=== PATIENT | male | born 1965 | race Caucasian/White ===

== ENCOUNTER 2017-01-22 12:19 | Inpatient (IN) | payer MEDICARE ==
[~2017-01-22] VITALS: Ht 162.6 cm; Wt 103.2 kg
[~2017-01-22 12:19] MED LIST: AMLO1CAP12 PO; AMLO5TAB4 PO; AMOX1TAB64 PO; CALC1TAB PO; CARV-39 PO; CITA40TA12 PO; CYAN100063 IM; DOXY100C2 PO; ERTA1VIA IV; ESOM40CA PO; FLUC200T PO; HYDR-3138 PO; HYDR-3240 PO; HYDR-3342 PO; MESA500C PO; OXYC1TAB8 PO; OXYC500S PO; POTA20TA14 PO; PROM12.55 PO; SERT100T PO; SULF1TAB3 PO; TEST200V21 IM; TRIA40VI IM
[2017-01-22] MEDS ORDERED: SODIUM CHLORIDE 0.9% 1,000ML IVBOLUS ONE (13:00)
[2017-01-22] MEDS ORDERED: SODIUM CHLORIDE FLUSH 10ML SYR IVF ONE (13:00)
[2017-01-22] MEDS ORDERED: ONDANSETRON 2MG/ML, 2ML IVPush ONE (13:30)
[2017-01-22] MEDS ORDERED: HYDROmorphone 1 MG/ML, 1ML ONE ×2 (13:36→15:16)
[2017-01-22] MEDS ORDERED: ONDANSETRON 2MG/ML, 2ML ONE (13:36)
[2017-01-22] MEDS: HYDROmorphone 1 MG/ML, 1ML IVPush PRN ×2 (13:44→15:22)
[2017-01-22 13:47] LABS: HEMOGLOBIN 11.8 g/dL (13.7-18.0)
[2017-01-22 13:56] LABS: ASPARTATE AMINO TRANSFERASE 17 U/L (15-37); BLOOD UREA NITROGEN 9 mg/dL (7-18)
[2017-01-22 14:21] LABS: DIFF TOTAL CELLS COUNTED 100 CELL DIFF
[2017-01-22 14:23] LABS: ANISOCYTOSIS 1+; VERIFY COUNTS? YES
[2017-01-22] MEDS ORDERED: OMNIPAQUE 350 MG/ML, 100ML BOTTLE ONE (14:27)
[2017-01-22] MEDS ORDERED: ONDANSETRON 2MG/ML, 2ML IVP PRN (16:30)
[2017-01-22] MEDS ORDERED: BISACODYL 10 MG SUPP PR PRN (16:30)
[2017-01-22] MEDS ORDERED: LABETALOL 5MG/ML, 20ML IV PRN ×2 (16:30→18:38)
[2017-01-22] MEDS ORDERED: ACETAMINOPHEN 325 MG TABLET PO PRN (16:30)
[2017-01-22] MEDS ORDERED: DOCUSATE 100 MG CAPSULE PO PRN (16:30)
[2017-01-22] MEDS ORDERED: POLYETHYLENE GLYCOL 17 GM PACKET PO PRN (16:30)
[2017-01-22] MEDS ORDERED: MORPHINE SULFATE 4 MG/ML, 1ML IVPush PRN (16:30)
[2017-01-22] MEDS: HYDROcodone/APAP 5/325 TABLET PO PRN (19:39)
[2017-01-22] MEDS: NS + 20MEQ KCL 1,000 ML IV SCH (19:54)
[2017-01-22] MEDS: ERTAPENEM 1 GM in SODIUM CHLORIDE 0.9% 50 ML IV SCH (19:54)
[2017-01-22 20:24] VITALS: BP 101/53
[2017-01-22] MEDS: CARVEDILOL 25 MG TABLET PO SCH (21:00)
[2017-01-23] MEDS: HYDROcodone/APAP 5/325 TABLET PO PRN ×6 (00:01→22:15)
[2017-01-23 02:34] VITALS: BP 101/58
[2017-01-23] MEDS: NS + 20MEQ KCL 1,000 ML IV SCH ×3 (04:02→17:15)
[2017-01-23 04:43] LABS: RAPID INFLUENZA A Negative (Negative); RAPID INFLUENZA B Negative (Negative)
[2017-01-23 05:36] LABS: HEMOGLOBIN 10.6 g/dL (13.7-18.0)
[2017-01-23 05:49] LABS: ASPARTATE AMINO TRANSFERASE 12 U/L (15-37); BLOOD UREA NITROGEN 7 mg/dL (7-18)
[2017-01-23 07:13] VITALS: BP 116/69
[2017-01-23] MEDS: CARVEDILOL 25 MG TABLET PO SCH ×2 (09:40→20:43)
[2017-01-23] MEDS: SERTRALINE 100MG TABLET PO SCH (09:40)
[2017-01-23] MEDS: AMLODIPINE 5 MG TABLET PO SCH (09:40)
[2017-01-23 13:22] VITALS: BP 111/67
[2017-01-23 19:04] VITALS: BP 111/65
[2017-01-23] MEDS ORDERED: FLUCONAZOLE 200 MG TABLET PO SCH (20:00)
[2017-01-23] MEDS: ERTAPENEM 1 GM in SODIUM CHLORIDE 0.9% 50 ML IV SCH (20:42)
[2017-01-24] MEDS: NS + 20MEQ KCL 1,000 ML IV SCH ×2 (01:49→12:32)
[2017-01-24 01:52] VITALS: BP 111/67
[2017-01-24] MEDS: HYDROcodone/APAP 5/325 TABLET PO PRN ×3 (02:41→11:11)
[2017-01-24 05:35] LABS: HEMOGLOBIN 10.3 g/dL (13.7-18.0)
[2017-01-24 05:40] LABS: BLOOD UREA NITROGEN 5 mg/dL (7-18)
[2017-01-24 07:00] VITALS: BP 108/67
[2017-01-24 09:35] VITALS: BP 107/65
[2017-01-24] MEDS: CARVEDILOL 25 MG TABLET PO SCH (09:37)
[2017-01-24] MEDS: AMLODIPINE 5 MG TABLET PO SCH (09:38)
[2017-01-24] MEDS: SERTRALINE 100MG TABLET PO SCH (09:38)
[2017-01-24] MEDS ORDERED: ERTAPENEM 1 GM in SODIUM CHLORIDE 0.9% 50 ML IV SCH (12:00)
[2017-01-24 14:16] VITALS: BP 104/61
== END 2017-01-24 14:39 | disposition home or self-care (01) | DRG 871 ==
LOC: ED 13:34 → EDIP 15:07 → 4NOR 18:15
PROVIDERS: ADMIT Hospitalist; ATTEND Hospitalist
DX: A41.9 Sepsis, unspecified organism (principal); K65.1 Peritoneal abscess; E44.0 Moderate protein-calorie malnutrition; E87.1 Hypo-osmolality and hyponatremia; K50.90 Crohn's disease, unspecified, without complications; K56.60 Unspecified intestinal obstruction; D64.9 Anemia, unspecified; D75.89 Other specified diseases of blood and blood-forming organs; R73.9 Hyperglycemia, unspecified; F32.9 Major depressive disorder, single episode, unspecified; I11.9 Hypertensive heart disease without heart failure; Z66 Do not resuscitate; Z86.14 Personal history of Methicillin resistant Staphylococcus aureus infection; Z87.891 Personal history of nicotine dependence; Z93.3 Colostomy status; Z90.49 Acquired absence of other specified parts of digestive tract; Z90.89 Acquired absence of other organs
CPT/HCPCS: 36415; 71010; 74177; 80048; 80053; 81001; 83605; 84145; 85025; 85651; 86140; 87040; 87086; 87400; 93005; 96361; 96374; 96376; J1170; J1335; J3480; Q9967; J7030

== ENCOUNTER 2017-02-03 12:46 | Inpatient (IN) | payer MEDICARE ==
[~2017-02-03] VITALS: Ht 162.6 cm; Wt 82.3 kg
[2017-02-03] MEDS ORDERED: ERTAPENEM 1 GM in SODIUM CHLORIDE 0.9% 50 ML IV ONE (15:05)
[2017-02-03] MEDS ORDERED: HYDROmorphone 1 MG/ML, 1ML ONE ×2 (15:24→16:03)
[2017-02-03] MEDS ORDERED: ONDANSETRON 2MG/ML, 2ML ONE (15:24)
[2017-02-03] MEDS ORDERED: SODIUM CHLORIDE FLUSH 10ML SYR IVF ONE (15:30)
[2017-02-03] MEDS ORDERED: ONDANSETRON 2MG/ML, 2ML IVPush ONE (15:30)
[2017-02-03] MEDS ORDERED: SODIUM CHLORIDE 0.9% 1,000ML IVBOLUS ONE (15:30)
[2017-02-03] MEDS: HYDROmorphone 1 MG/ML, 1ML IVPush PRN ×2 (15:31→16:07)
[2017-02-03 15:39] LABS: ASPARTATE AMINO TRANSFERASE 18 U/L (15-37); BLOOD UREA NITROGEN 13 mg/dL (7-18)
[2017-02-03] MEDS ORDERED: LABETALOL 5MG/ML, 20ML IVPush PRN (17:00)
[2017-02-03] MEDS ORDERED: OMNIPAQUE 350 MG/ML, 100ML BOTTLE ONE (17:20)
[2017-02-03] MEDS ORDERED: ONDANSETRON 2MG/ML, 2ML IVP PRN (17:30)
[2017-02-03 20:00] VITALS: BP 120/91
[2017-02-03 20:15] VITALS: BP 120/71
[2017-02-03] MEDS: PANTOPRAZOLE 40 MG IV IVPush SCH (21:18)
[2017-02-03] MEDS: SODIUM CHLORIDE 0.9% 1,000 ML IV SCH (21:19)
[2017-02-03] MEDS: MORPHINE SULFATE 4 MG/ML, 1ML IVPush PRN ×3 (21:19→23:26)
[2017-02-04] MEDS: MORPHINE SULFATE 4 MG/ML, 1ML IVPush PRN ×7 (02:59→23:17)
[2017-02-04 03:04] VITALS: BP 127/71
[2017-02-04] MEDS: SODIUM CHLORIDE 0.9% 1,000 ML IV SCH ×2 (05:08→17:22)
[2017-02-04 06:19] LABS: ASPARTATE AMINO TRANSFERASE 18 U/L (15-37); BLOOD UREA NITROGEN 10 mg/dL (7-18)
[2017-02-04 08:02] VITALS: BP 123/66
[2017-02-04] MEDS: PANTOPRAZOLE 40 MG IV IVPush SCH ×2 (08:53→22:04)
[2017-02-04] MEDS ORDERED: MAGNESIUM SULFATE PMX 2GM/50ML 50 ML IV ONE (09:00)
[2017-02-04] MEDS ORDERED: ERTAPENEM 1 GM IV SCH (09:00)
[2017-02-04] MEDS: ERTAPENEM 1 GM in SODIUM CHLORIDE 0.9% 50 ML IV SCH (09:05)
[2017-02-04] MEDS: AMLODIPINE 5 MG TABLET PO SCH (10:12)
[2017-02-04] MEDS: SERTRALINE 100MG TABLET PO SCH (10:13)
[2017-02-04 13:59] VITALS: BP 118/61
[2017-02-04 20:09] VITALS: BP 120/72
[2017-02-04] MEDS: CARVEDILOL 25 MG TABLET PO SCH (22:04)
[2017-02-05 01:43] VITALS: BP 99/57
[2017-02-05] MEDS: MORPHINE SULFATE 4 MG/ML, 1ML IVPush PRN ×4 (02:38→12:55)
[2017-02-05 05:50] LABS: BLOOD UREA NITROGEN 7 mg/dL (7-18)
[2017-02-05 08:09] VITALS: BP 105/62
[2017-02-05] MEDS: CARVEDILOL 25 MG TABLET PO SCH (09:02)
[2017-02-05] MEDS: AMLODIPINE 5 MG TABLET PO SCH (09:03)
[2017-02-05] MEDS: PANTOPRAZOLE 40 MG IV IVPush SCH (09:10)
[2017-02-05] MEDS: ERTAPENEM 1 GM in SODIUM CHLORIDE 0.9% 50 ML IV SCH (09:10)
[2017-02-05] MEDS: SERTRALINE 100MG TABLET PO SCH (09:11)
[2017-02-05 13:51] VITALS: BP 106/62
[2017-02-05 17:08] VITALS: BP 122/71
== END 2017-02-05 18:35 | disposition home or self-care (01) | DRG 389 ==
LOC: ED 13:39 → EDIP 17:04 → 4NOR 20:35
PROVIDERS: ADMIT Family Medicine; ATTEND Family Medicine
DX: K56.5 Intestinal adhesions [bands] with obstruction (postinfection) (principal); E44.0 Moderate protein-calorie malnutrition; K50.90 Crohn's disease, unspecified, without complications; L02.211 Cutaneous abscess of abdominal wall; D75.89 Other specified diseases of blood and blood-forming organs; E83.42 Hypomagnesemia; I11.9 Hypertensive heart disease without heart failure; F32.9 Major depressive disorder, single episode, unspecified; S31.109A Unspecified open wound of abdominal wall, unspecified quadrant without penetration into peritoneal cavity, initial encounter; X58.XXXA Exposure to other specified factors, initial encounter; D64.9 Anemia, unspecified; Z66 Do not resuscitate; Z86.14 Personal history of Methicillin resistant Staphylococcus aureus infection; Z87.891 Personal history of nicotine dependence; Z93.3 Colostomy status; Z90.49 Acquired absence of other specified parts of digestive tract; Z90.89 Acquired absence of other organs; Z88.8 Allergy status to other drugs, medicaments and biological substances; Y93.89 Activity, other specified; Y92.89 Other specified places as the place of occurrence of the external cause; Y99.8 Other external cause status; Z68.31 Body mass index [BMI] 31.0-31.9, adult
CPT/HCPCS: 36415; 74020; 74177; 80048; 80053; 83605; 83690; 83735; 84100; 85025; 87040; 96361; 96365; 96366; 96375; 96376; J1170; J1335; J2405; Q9967; C9113; J3475; J7030

== ENCOUNTER 2017-02-24 15:19 | Inpatient (IN) | payer MEDICARE ==
[~2017-02-24] VITALS: Ht 162.6 cm; Wt 69.8 kg
[2017-02-24] MEDS ORDERED: SODIUM CHLORIDE 0.9% 1,000 ML IV ONE (15:29)
[2017-02-24] MEDS ORDERED: ACETAMINOPHEN 325 MG TABLET PO ONE (15:30)
[2017-02-24] MEDS ORDERED: SODIUM CHLORIDE FLUSH 10ML SYR IVF ONE (15:30)
[2017-02-24] MEDS ORDERED: ONDANSETRON 2MG/ML, 2ML IVPush ONE (15:30)
[2017-02-24 16:03] LABS: BLOOD UREA NITROGEN 14 mg/dL (7-18)
[2017-02-24 16:06] LABS: ASPARTATE AMINO TRANSFERASE 27 U/L (15-37)
[2017-02-24 16:18] LABS: DIFF TOTAL CELLS COUNTED 100 CELL DIFF
[2017-02-24 16:19] LABS: ANISOCYTOSIS 1+; VERIFY COUNTS? YES
[2017-02-24 16:20] LABS: POLYCHROMASIA 1+
[2017-02-24] MEDS ORDERED: HYDROmorphone 1 MG/ML, 1ML ONE ×4 (16:24→18:53)
[2017-02-24] MEDS ORDERED: ONDANSETRON 2MG/ML, 2ML ONE (16:24)
[2017-02-24] MEDS ORDERED: ACETAMINOPHEN 325 MG TABLET ONE ×2 (16:25→18:53)
[2017-02-24] MEDS: HYDROmorphone 1 MG/ML, 1ML IVPush PRN ×4 (16:28→18:56)
[2017-02-24] MEDS ORDERED: FLUC200T4 PO (16:43)
[2017-02-24] MEDS ORDERED: TESTERONE (16:44)
[2017-02-24] MEDS ORDERED: OMNIPAQUE 350 MG/ML, 100ML BOTTLE ONE (17:20)
[2017-02-24] MEDS ORDERED: SODIUM CHLORIDE 0.9% 1,000ML IVBOLUS ONE (18:00)
[2017-02-24] MEDS ORDERED: ACETAMINOPHEN 500 MG TABLET PO ONE (18:30)
[2017-02-24] MEDS ORDERED: POLYETHYLENE GLYCOL 17 GM PACKET PO PRN (19:30)
[2017-02-24] MEDS ORDERED: DOCUSATE 100 MG CAPSULE PO PRN (19:30)
[2017-02-24] MEDS ORDERED: VANCOMYCIN PER PHARMACY MC PRN (19:30)
[2017-02-24] MEDS ORDERED: CIPROFLOXACIN/PMX 400MG/200ML 200 ML IV SCH (19:30)
[2017-02-24] MEDS ORDERED: ACETAMINOPHEN 325 MG TABLET PO PRN (19:30)
[2017-02-24] MEDS ORDERED: morphine SULFATE 10 MG/ML, 1ML IVPush PRN (19:30)
[2017-02-24 20:18] VITALS: BP 102/54
[2017-02-24] MEDS: CARVEDILOL 25 MG TABLET PO SCH (20:43)
[2017-02-24] MEDS ORDERED: PHARMACOKINETIC MONITORING MC PRN (21:00)
[2017-02-24] MEDS ORDERED: PHARMACOKINETIC CONSULTATION MC ONE (21:00)
[2017-02-24] MEDS: MORPHINE SULFATE 4 MG/ML, 1ML IVPush PRN (21:01)
[2017-02-24] MEDS: NS + 20MEQ KCL 1,000 ML IV SCH (21:02)
[2017-02-24] MEDS: ERTAPENEM 1 GM in SODIUM CHLORIDE 0.9% 50 ML IV SCH (21:02)
[2017-02-24] MEDS ORDERED: VANCOMYCIN 1,500 MG in SODIUM CHLORIDE 0.9% 250 ML IV SCH (21:30)
[2017-02-24] MEDS: OXYcodone IR 5MG TABLET PO PRN (22:24)
[2017-02-25 00:52] VITALS: BP 97/54
[2017-02-25] MEDS: MORPHINE SULFATE 4 MG/ML, 1ML IVPush PRN ×7 (00:54→21:30)
[2017-02-25 01:31] VITALS: BP 106/54
[2017-02-25 05:29] LABS: BLOOD UREA NITROGEN 10 mg/dL (7-18)
[2017-02-25] MEDS: OXYcodone IR 5MG TABLET PO PRN ×4 (06:33→20:33)
[2017-02-25] MEDS: NS + 20MEQ KCL 1,000 ML IV SCH (06:33)
[2017-02-25 07:38] VITALS: BP 105/59
[2017-02-25] MEDS: CARVEDILOL 25 MG TABLET PO SCH ×2 (09:44→20:34)
[2017-02-25] MEDS: VANCOMYCIN 1,500 MG in SODIUM CHLORIDE 0.9% 250 ML IV SCH ×2 (09:45→21:30)
[2017-02-25] MEDS: FLUCONAZOLE 200 MG TABLET PO SCH (09:45)
[2017-02-25] MEDS: SERTRALINE 100MG TABLET PO SCH (09:47)
[2017-02-25] MEDS: ENOXAPARIN 40 MG/0.4 ML SQ SCH (10:00)
[2017-02-25] MEDS: SODIUM CHLORIDE 0.9% IV SCH ×2 (10:50→20:34)
[2017-02-25] MEDS: MAGNESIUM SULFATE IV SCH ×2 (10:50→20:34)
[2017-02-25] MEDS: POTASSIUM CHLORIDE IV SCH ×2 (10:50→20:34)
[2017-02-25 14:44] VITALS: BP 91/50
[2017-02-25 20:25] VITALS: BP 102/62
[2017-02-25] MEDS: ERTAPENEM 1 GM in SODIUM CHLORIDE 0.9% 50 ML IV SCH (20:34)
[2017-02-26 02:51] VITALS: BP 96/55
[2017-02-26] MEDS: MORPHINE SULFATE 4 MG/ML, 1ML IVPush PRN ×4 (02:57→21:26)
[2017-02-26] MEDS: OXYcodone IR 5MG TABLET PO PRN ×3 (04:26→20:17)
[2017-02-26 04:48] LABS: BLOOD UREA NITROGEN 6 mg/dL (7-18)
[2017-02-26 08:25] VITALS: BP 108/59
[2017-02-26] MEDS: SERTRALINE 100MG TABLET PO SCH (08:27)
[2017-02-26] MEDS: FLUCONAZOLE 200 MG TABLET PO SCH (08:27)
[2017-02-26] MEDS: CARVEDILOL 25 MG TABLET PO SCH ×2 (08:27→20:16)
[2017-02-26] MEDS: SODIUM CHLORIDE 0.9% IV SCH (08:28)
[2017-02-26] MEDS: POTASSIUM CHLORIDE IV SCH (08:28)
[2017-02-26] MEDS: MAGNESIUM SULFATE IV SCH (08:28)
[2017-02-26] MEDS: ENOXAPARIN 40 MG/0.4 ML SQ SCH (10:00)
[2017-02-26] MEDS: VANCOMYCIN 1,500 MG in SODIUM CHLORIDE 0.9% 250 ML IV SCH ×2 (11:56→21:18)
[2017-02-26 13:56] VITALS: BP 105/62
[2017-02-26 19:30] VITALS: BP 105/63
[2017-02-26] MEDS: ERTAPENEM 1 GM in SODIUM CHLORIDE 0.9% 50 ML IV SCH (20:16)
[2017-02-26 21:21] VITALS: BP 117/65
[2017-02-27 01:59] VITALS: BP 109/62
[2017-02-27] MEDS: OXYcodone IR 5MG TABLET PO PRN ×4 (02:19→22:03)
[2017-02-27 02:32] LABS: BLOOD UREA NITROGEN 5 mg/dL (7-18)
[2017-02-27] MEDS: FLUCONAZOLE 200 MG TABLET PO SCH (09:20)
[2017-02-27] MEDS: CARVEDILOL 25 MG TABLET PO SCH ×2 (09:20→20:38)
[2017-02-27] MEDS: SERTRALINE 100MG TABLET PO SCH (09:20)
[2017-02-27 09:34] VITALS: BP 119/67
[2017-02-27] MEDS: VANCOMYCIN 1,500 MG in SODIUM CHLORIDE 0.9% 250 ML IV SCH ×2 (10:56→22:03)
[2017-02-27] MEDS: MORPHINE SULFATE 4 MG/ML, 1ML IVPush PRN ×2 (10:56→20:30)
[2017-02-27] MEDS: ENOXAPARIN 40 MG/0.4 ML SQ SCH (10:57)
[2017-02-27 14:06] VITALS: BP 116/64
[2017-02-27 19:23] VITALS: BP 120/74
[2017-02-27] MEDS: ERTAPENEM 1 GM in SODIUM CHLORIDE 0.9% 50 ML IV SCH (20:38)
[2017-02-28 03:13] VITALS: BP 112/71
[2017-02-28] MEDS: MORPHINE SULFATE 4 MG/ML, 1ML IVPush PRN ×4 (03:19→22:48)
[2017-02-28 03:36] LABS: BLOOD UREA NITROGEN 5 mg/dL (7-18)
[2017-02-28 08:32] VITALS: BP 114/72
[2017-02-28] MEDS: CARVEDILOL 25 MG TABLET PO SCH ×2 (08:55→21:12)
[2017-02-28] MEDS: OXYcodone IR 5MG TABLET PO PRN ×3 (08:56→21:12)
[2017-02-28] MEDS: FLUCONAZOLE 200 MG TABLET PO SCH (08:56)
[2017-02-28] MEDS: SERTRALINE 100MG TABLET PO SCH (08:56)
[2017-02-28] MEDS: ENOXAPARIN 40 MG/0.4 ML SQ SCH (10:00)
[2017-02-28] MEDS: VANCOMYCIN 1,500 MG in SODIUM CHLORIDE 0.9% 250 ML IV SCH ×2 (12:00→22:47)
[2017-02-28 14:59] VITALS: BP 107/69
[2017-02-28 20:43] VITALS: BP 124/75
[2017-02-28] MEDS: ERTAPENEM 1 GM in SODIUM CHLORIDE 0.9% 50 ML IV SCH (21:12)
[2017-03-01] MEDS: OXYcodone IR 5MG TABLET PO PRN ×4 (01:11→20:26)
[2017-03-01 02:00] VITALS: BP 112/62
[2017-03-01] MEDS: MORPHINE SULFATE 4 MG/ML, 1ML IVPush PRN ×6 (02:23→21:46)
[2017-03-01 07:13] VITALS: BP 103/63
[2017-03-01 09:08] VITALS: BP 124/69
[2017-03-01] MEDS: SERTRALINE 100MG TABLET PO SCH (09:09)
[2017-03-01] MEDS: FLUCONAZOLE 200 MG TABLET PO SCH (09:09)
[2017-03-01] MEDS: CARVEDILOL 25 MG TABLET PO SCH ×2 (09:10→20:26)
[2017-03-01] MEDS: ENOXAPARIN 40 MG/0.4 ML SQ SCH (12:03)
[2017-03-01] MEDS: VANCOMYCIN 1,500 MG in SODIUM CHLORIDE 0.9% 250 ML IV SCH (12:03)
[2017-03-01 12:35] VITALS: BP 105/66
[2017-03-01 19:18] VITALS: BP 115/65
[2017-03-01] MEDS: ERTAPENEM 1 GM in SODIUM CHLORIDE 0.9% 50 ML IV SCH (20:25)
[2017-03-02] MEDS: MORPHINE SULFATE 4 MG/ML, 1ML IVPush PRN ×4 (00:31→22:41)
[2017-03-02] MEDS: OXYcodone IR 5MG TABLET PO PRN ×3 (00:31→09:26)
[2017-03-02] MEDS: VANCOMYCIN 1,500 MG in SODIUM CHLORIDE 0.9% 250 ML IV SCH (00:31)
[2017-03-02 03:40] VITALS: BP 108/66
[2017-03-02 07:05] VITALS: BP 104/63
[2017-03-02] MEDS: SERTRALINE 100MG TABLET PO SCH (09:23)
[2017-03-02] MEDS: FLUCONAZOLE 200 MG TABLET PO SCH (09:23)
[2017-03-02] MEDS: CARVEDILOL 25 MG TABLET PO SCH ×2 (09:24→21:00)
[2017-03-02] MEDS: ENOXAPARIN 40 MG/0.4 ML SQ SCH (12:00)
[2017-03-02 12:55] VITALS: BP 103/64
[2017-03-02] MEDS ORDERED: MEPERIDINE/PF 25MG/0.5ML IVPush PRN (15:30)
[2017-03-02] MEDS ORDERED: ONDANSETRON 2MG/ML, 2ML IVPush PRN (15:30)
[2017-03-02] MEDS ORDERED: hydrALAzine 20 MG/ML, 1ML IV PRN (15:30)
[2017-03-02] MEDS ORDERED: OXYcodone 5 MG/5 ML ORAL.SOL UDC PO PRN (15:30)
[2017-03-02] MEDS ORDERED: PROMETHAZINE 25 MG/ML, 1ML IV PRN (15:30)
[2017-03-02] MEDS ORDERED: LABETALOL 5MG/ML, 20ML IV PRN (15:30)
[2017-03-02] MEDS ORDERED: METOCLOPRAMIDE 5 MG/ML, 2ML IV PRN (15:30)
[2017-03-02] MEDS ORDERED: ROCURONIUM 10 MG/ML ONE (15:40)
[2017-03-02] MEDS ORDERED: PHENYLEPHRINE 10 MG/ML ONE (15:40)
[2017-03-02] MEDS ORDERED: NEOSTIGMINE 1 MG/ML, 10ML ONE (15:40)
[2017-03-02] MEDS ORDERED: PROPOFOL 10 MG/ML, 20ML ONE (15:40)
[2017-03-02] MEDS ORDERED: GLYCOPYRROLATE 0.2MG/1ML ONE (15:40)
[2017-03-02] MEDS ORDERED: VANCOMYCIN 1,500 MG in SODIUM CHLORIDE 0.9% 250 ML IV SCH (18:00)
[2017-03-02] MEDS ORDERED: VASOPRESSIN 20 UNIT/ML, 1ML ONE (18:33)
[2017-03-02] MEDS ORDERED: ALBUMIN HUMAN 5% 500 ML ONE (18:34)
[2017-03-02] MEDS: FENTANYL PF 100 MCG/2ML IV PRN ×4 (18:45→19:40)
[2017-03-02] MEDS ORDERED: HYDROmorphone 2 MG/ML, 1ML ONE (20:02)
[2017-03-02] MEDS: HYDROmorphone 1 MG/ML, 1ML IV PRN ×3 (20:04→20:19)
[2017-03-02] MEDS: ERTAPENEM 1 GM in SODIUM CHLORIDE 0.9% 50 ML IV SCH (21:48)
[2017-03-02 22:26] LABS: BLOOD UREA NITROGEN 13 mg/dL (7-18)
[2017-03-03] MEDS: MORPHINE SULFATE 4 MG/ML, 1ML IVPush PRN ×3 (01:44→08:07)
[2017-03-03 04:00] VITALS: BP 114/48
[2017-03-03] MEDS: ONDANSETRON 2MG/ML, 2ML IVPush PRN ×2 (05:04→09:03)
[2017-03-03 05:20] LABS: BLOOD UREA NITROGEN 14 mg/dL (7-18)
[2017-03-03 05:23] LABS: ASPARTATE AMINO TRANSFERASE 18 U/L (15-37)
[2017-03-03] MEDS ORDERED: MAGNESIUM SULFATE PMX 4GM/100M 100 ML IV ONE (08:00)
[2017-03-03] MEDS: FLUCONAZOLE 200 MG TABLET PO SCH (09:03)
[2017-03-03] MEDS: SERTRALINE 100MG TABLET PO SCH (09:03)
[2017-03-03] MEDS: HYDROmorphone 2 MG/ML, 1ML IVPush PRN ×7 (10:14→23:18)
[2017-03-03] MEDS: ENOXAPARIN 40 MG/0.4 ML SQ SCH (12:24)
[2017-03-03] MEDS ORDERED: SODIUM CHLORIDE 0.9%, 500ML IVBOLUS ONE (14:00)
[2017-03-03] MEDS: SODIUM CHLORIDE 0.9% 1,000 ML IV SCH ×3 (14:06→23:19)
[2017-03-03] MEDS: ERTAPENEM 1 GM in SODIUM CHLORIDE 0.9% 50 ML IV SCH (20:44)
[2017-03-04] VITALS (7 sets, daily range): BP systolic 100–115; BP diastolic 47–62
[2017-03-04] MEDS: HYDROmorphone 2 MG/ML, 1ML IVPush PRN ×5 (02:16→22:46)
[2017-03-04 05:57] LABS: BLOOD UREA NITROGEN 20 mg/dL (7-18)
[2017-03-04] MEDS: OXYcodone IR 5MG TABLET PO PRN (07:43)
[2017-03-04] MEDS: SODIUM CHLORIDE 0.9% 1,000 ML IV SCH ×3 (08:30→20:43)
[2017-03-04] MEDS: FLUCONAZOLE 200 MG TABLET PO SCH (08:31)
[2017-03-04] MEDS: SERTRALINE 100MG TABLET PO SCH (08:31)
[2017-03-04] MEDS: OXYcodone/APAP 7.5/325MG TABLET PO PRN ×3 (12:02→20:42)
[2017-03-04] MEDS: ENOXAPARIN 30 MG/0.3 ML SQ SCH (12:04)
[2017-03-04] MEDS ORDERED: FAMOTIDINE 20 MG/2 ML IVPush SCH (14:30)
[2017-03-04] MEDS: FAMOTIDINE 20 MG/2 ML IVPush SCH (15:07)
[2017-03-04] MEDS: ERTAPENEM 1 GM in SODIUM CHLORIDE 0.9% 50 ML IV SCH (20:42)
[2017-03-05] VITALS (9 sets, daily range): BP systolic 95–112; BP diastolic 57–70
[2017-03-05] MEDS: OXYcodone/APAP 7.5/325MG TABLET PO PRN ×5 (01:22→23:39)
[2017-03-05] MEDS: HYDROmorphone 2 MG/ML, 1ML IVPush PRN ×5 (03:30→21:37)
[2017-03-05 05:32] LABS: BLOOD UREA NITROGEN 20 mg/dL (7-18)
[2017-03-05 05:36] LABS: ASPARTATE AMINO TRANSFERASE 13 U/L (15-37)
[2017-03-05] MEDS: FLUCONAZOLE 200 MG TABLET PO SCH (07:09)
[2017-03-05] MEDS: FAMOTIDINE 20 MG/2 ML IVPush SCH (07:09)
[2017-03-05] MEDS: SODIUM CHLORIDE 0.9% 1,000 ML IV SCH ×2 (07:10→17:41)
[2017-03-05] MEDS: SERTRALINE 100MG TABLET PO SCH (07:10)
[2017-03-05] MEDS: ENOXAPARIN 30 MG/0.3 ML SQ SCH (13:02)
[2017-03-05] MEDS ORDERED: CATHFLO-ALTEPLASE 2 MG/2 ML CATHFLUSH ONE ×2 (15:30→18:00)
[2017-03-05] MEDS: ERTAPENEM 1 GM in SODIUM CHLORIDE 0.9% 50 ML IV SCH (21:37)
[2017-03-06 02:05] VITALS: BP 111/64
[2017-03-06] MEDS: HYDROmorphone 2 MG/ML, 1ML IVPush PRN ×5 (02:22→23:57)
[2017-03-06] MEDS: OXYcodone/APAP 7.5/325MG TABLET PO PRN ×5 (03:24→23:15)
[2017-03-06] MEDS: SODIUM CHLORIDE 0.9% 1,000 ML IV SCH ×2 (03:24→15:23)
[2017-03-06 06:02] LABS: ASPARTATE AMINO TRANSFERASE 13 U/L (15-37); BLOOD UREA NITROGEN 16 mg/dL (7-18)
[2017-03-06 07:50] VITALS: BP 113/67
[2017-03-06] MEDS: FLUCONAZOLE 200 MG TABLET PO SCH (08:45)
[2017-03-06] MEDS: SERTRALINE 100MG TABLET PO SCH (08:46)
[2017-03-06] MEDS: FAMOTIDINE 20 MG/2 ML IVPush SCH (11:00)
[2017-03-06] MEDS: ENOXAPARIN 40 MG/0.4 ML SQ SCH (12:58)
[2017-03-06 15:35] VITALS: BP 104/64
[2017-03-06 18:44] LABS: BLOOD UREA NITROGEN 14 mg/dL (7-18)
[2017-03-06 19:42] VITALS: BP 118/70
[2017-03-06] MEDS: ERTAPENEM 1 GM in SODIUM CHLORIDE 0.9% 50 ML IV SCH (21:09)
[2017-03-07 01:38] VITALS: BP 115/50
[2017-03-07] MEDS: SODIUM CHLORIDE 0.9% 1,000 ML IV SCH ×3 (02:07→20:38)
[2017-03-07] MEDS: HYDROmorphone 2 MG/ML, 1ML IVPush PRN ×4 (04:17→20:29)
[2017-03-07] MEDS: OXYcodone/APAP 7.5/325MG TABLET PO PRN ×5 (05:08→23:13)
[2017-03-07 07:07] VITALS: BP 116/70
[2017-03-07] MEDS: FLUCONAZOLE 200 MG TABLET PO SCH (08:35)
[2017-03-07] MEDS: FAMOTIDINE 20 MG/2 ML IVPush SCH (08:35)
[2017-03-07] MEDS: SERTRALINE 100MG TABLET PO SCH (08:35)
[2017-03-07] MEDS: ENOXAPARIN 40 MG/0.4 ML SQ SCH (12:13)
[2017-03-07 15:22] VITALS: BP 133/73
[2017-03-07 19:28] VITALS: BP 146/81
[2017-03-07] MEDS: ERTAPENEM 1 GM in SODIUM CHLORIDE 0.9% 50 ML IV SCH (20:29)
[2017-03-07] MEDS: ONDANSETRON 2MG/ML, 2ML IVPush PRN (20:38)
[2017-03-08] VITALS (7 sets, daily range): BP systolic 122–138; BP diastolic 70–77
[2017-03-08] MEDS: OXYcodone/APAP 7.5/325MG TABLET PO PRN ×5 (03:39→23:44)
[2017-03-08 05:05] LABS: BLOOD UREA NITROGEN 11 mg/dL (7-18)
[2017-03-08] MEDS: SODIUM CHLORIDE 0.9% 1,000 ML IV SCH ×2 (08:09→17:09)
[2017-03-08] MEDS: ONDANSETRON 2MG/ML, 2ML IVPush PRN (08:09)
[2017-03-08] MEDS: SERTRALINE 100MG TABLET PO SCH (09:39)
[2017-03-08] MEDS: FLUCONAZOLE 200 MG TABLET PO SCH (09:39)
[2017-03-08] MEDS: FAMOTIDINE 20 MG/2 ML IVPush SCH (09:40)
[2017-03-08] MEDS: HYDROmorphone 2 MG/ML, 1ML IVPush PRN ×3 (09:55→21:12)
[2017-03-08] MEDS: ENOXAPARIN 40 MG/0.4 ML SQ SCH (12:00)
[2017-03-08] MEDS: LACTOBACILLUS 1GM/ PACKET PO SCH ×3 (12:18→21:12)
[2017-03-08] MEDS ORDERED: ONDANSETRON ODT 4 MG ONE (14:53)
[2017-03-08] MEDS ORDERED: ONDANSETRON ODT 4 MG PO PRN (15:00)
[2017-03-08] MEDS: ERTAPENEM 1 GM in SODIUM CHLORIDE 0.9% 50 ML IV SCH (21:12)
[2017-03-09 02:25] VITALS: BP 131/72
[2017-03-09] MEDS: HYDROmorphone 2 MG/ML, 1ML IVPush PRN ×5 (02:31→21:48)
[2017-03-09] MEDS: SODIUM CHLORIDE 0.9% 1,000 ML IV SCH ×3 (02:33→21:48)
[2017-03-09] MEDS: OXYcodone/APAP 7.5/325MG TABLET PO PRN ×5 (06:04→23:05)
[2017-03-09 06:41] LABS: BLOOD UREA NITROGEN 10 mg/dL (7-18)
[2017-03-09] MEDS: FLUCONAZOLE 200 MG TABLET PO SCH (07:48)
[2017-03-09] MEDS: SERTRALINE 100MG TABLET PO SCH (07:48)
[2017-03-09] MEDS: LACTOBACILLUS 1GM/ PACKET PO SCH ×3 (07:48→21:41)
[2017-03-09] MEDS: FAMOTIDINE 20 MG/2 ML IVPush SCH (07:49)
[2017-03-09 08:59] VITALS: BP 129/77
[2017-03-09] MEDS: ONDANSETRON 2MG/ML, 2ML IVPush PRN (09:47)
[2017-03-09] MEDS: ENOXAPARIN 40 MG/0.4 ML SQ SCH (12:00)
[2017-03-09 15:20] VITALS: BP 136/78
[2017-03-09 20:00] VITALS: BP 120/74
[2017-03-09] MEDS: ERTAPENEM 1 GM in SODIUM CHLORIDE 0.9% 50 ML IV SCH (21:41)
[2017-03-09] MEDS ORDERED: OMNIPAQUE 350 MG/ML, 50 ML BOTTLE ONE (21:44)
[2017-03-10 02:00] VITALS: BP 119/66
[2017-03-10] MEDS: OXYcodone/APAP 7.5/325MG TABLET PO PRN ×5 (02:57→20:42)
[2017-03-10] MEDS: LACTOBACILLUS 1GM/ PACKET PO SCH ×3 (09:00→20:27)
[2017-03-10] MEDS: FLUCONAZOLE 200 MG TABLET PO SCH (09:12)
[2017-03-10] MEDS: SERTRALINE 100MG TABLET PO SCH (09:12)
[2017-03-10] MEDS: FAMOTIDINE 20 MG/2 ML IVPush SCH (09:12)
[2017-03-10 09:15] VITALS: BP 154/82
[2017-03-10] MEDS: SODIUM CHLORIDE 0.9% 1,000 ML IV SCH ×2 (09:18→20:45)
[2017-03-10] MEDS: HYDROmorphone 2 MG/ML, 1ML IVPush PRN ×3 (09:37→18:21)
[2017-03-10] MEDS: ENOXAPARIN 40 MG/0.4 ML SQ SCH (12:04)
[2017-03-10 12:59] LABS: BLOOD UREA NITROGEN 8 mg/dL (7-18)
[2017-03-10 14:00] VITALS: BP 149/79
[2017-03-10] MEDS: FLUCONAZOLE 400 MG/200 ML 200 ML IV SCH (14:25)
[2017-03-10] MEDS ORDERED: FILTER, DISP 1.2 MICRON FOR TPN/PVN IV PRN (15:00)
[2017-03-10] MEDS ORDERED: DEXTROSE 10% 500 ML IV PRN (17:00)
[2017-03-10] MEDS ORDERED: AMINO ACID 10% IV SCH (17:00)
[2017-03-10] MEDS ORDERED: DEXTROSE 70% IV SCH (17:00)
[2017-03-10] MEDS ORDERED: FAT EMULSIONS IV SCH (17:00)
[2017-03-10] MEDS ORDERED: [UNRECOGNIZED DRUG - OTHER] IV SCH (17:00)
[2017-03-10] MEDS ORDERED: DEXTROSE 50%, 50ML SYRINGE IVPush PRN (17:00)
[2017-03-10] MEDS ORDERED: TPN PER PHARMACY MC PRN (17:00)
[2017-03-10] MEDS: ERTAPENEM 1 GM in SODIUM CHLORIDE 0.9% 50 ML IV SCH (20:26)
[2017-03-10] MEDS: INSULIN REGULAR MEDIUM DOSE Q6H X 48HRS SQ-INSULIN SCH (20:31)
[2017-03-10 21:35] VITALS: BP 150/76
[2017-03-11 02:11] VITALS: BP 136/73
[2017-03-11] MEDS: OXYcodone/APAP 7.5/325MG TABLET PO PRN ×5 (02:24→22:21)
[2017-03-11] MEDS: INSULIN REGULAR MEDIUM DOSE Q6H X 48HRS SQ-INSULIN SCH ×4 (02:28→21:00)
[2017-03-11] MEDS: HYDROmorphone 2 MG/ML, 1ML IVPush PRN ×4 (05:06→20:57)
[2017-03-11 05:49] LABS: BLOOD UREA NITROGEN 9 mg/dL (7-18)
[2017-03-11 05:53] LABS: ASPARTATE AMINO TRANSFERASE 18 U/L (15-37)
[2017-03-11 07:15] VITALS: BP 137/80
[2017-03-11] MEDS: SERTRALINE 100MG TABLET PO SCH (09:16)
[2017-03-11] MEDS: LACTOBACILLUS 1GM/ PACKET PO SCH ×3 (09:16→20:57)
[2017-03-11 12:17] VITALS: BP 137/83
[2017-03-11] MEDS: FLUCONAZOLE 400 MG/200 ML 200 ML IV SCH (13:07)
[2017-03-11] MEDS: ENOXAPARIN 40 MG/0.4 ML SQ SCH ×2 (13:07→13:09)
[2017-03-11] MEDS ORDERED: [UNRECOGNIZED DRUG - OTHER] IV SCH (17:00)
[2017-03-11] MEDS ORDERED: FILTER, DISP 1.2 MICRON FOR TPN/PVN IV PRN (17:00)
[2017-03-11] MEDS ORDERED: AMINO ACID 10% IV SCH (17:00)
[2017-03-11] MEDS ORDERED: FAT EMULSIONS IV SCH (17:00)
[2017-03-11] MEDS ORDERED: DEXTROSE 70% IV SCH (17:00)
[2017-03-11] MEDS: SODIUM CHLORIDE 0.9% 1,000 ML IV SCH (17:27)
[2017-03-11 20:51] VITALS: BP 145/81
[2017-03-11] MEDS: ERTAPENEM 1 GM in SODIUM CHLORIDE 0.9% 50 ML IV SCH (20:57)
[2017-03-12] MEDS: OXYcodone/APAP 7.5/325MG TABLET PO PRN ×5 (01:56→21:26)
[2017-03-12] MEDS: INSULIN REGULAR MEDIUM DOSE Q6H X 48HRS SQ-INSULIN SCH (03:00)
[2017-03-12 03:30] VITALS: BP 144/89
[2017-03-12] MEDS: HYDROmorphone 2 MG/ML, 1ML IVPush PRN ×4 (05:43→19:47)
[2017-03-12 06:11] LABS: BLOOD UREA NITROGEN 11 mg/dL (7-18)
[2017-03-12 07:47] VITALS: BP 155/84
[2017-03-12] MEDS: SERTRALINE 100MG TABLET PO SCH (08:59)
[2017-03-12] MEDS: LACTOBACILLUS 1GM/ PACKET PO SCH ×3 (09:01→21:00)
[2017-03-12] MEDS: FLUCONAZOLE 400 MG/200 ML 200 ML IV SCH (13:01)
[2017-03-12] MEDS: ENOXAPARIN 40 MG/0.4 ML SQ SCH (13:02)
[2017-03-12 13:41] VITALS: BP 132/82
[2017-03-12] MEDS ORDERED: FAT EMULSIONS IV SCH (17:00)
[2017-03-12] MEDS ORDERED: AMINO ACID 10% IV SCH (17:00)
[2017-03-12] MEDS ORDERED: [UNRECOGNIZED DRUG - OTHER] IV SCH (17:00)
[2017-03-12] MEDS ORDERED: DEXTROSE 70% IV SCH (17:00)
[2017-03-12] MEDS: FILTER, DISP 1.2 MICRON FOR TPN/PVN IV PRN (17:29)
[2017-03-12] MEDS: SODIUM CHLORIDE 0.9% 1,000 ML IV SCH (17:29)
[2017-03-12 20:49] VITALS: BP 148/81
[2017-03-12] MEDS: ERTAPENEM 1 GM in SODIUM CHLORIDE 0.9% 50 ML IV SCH (20:51)
[2017-03-13] MEDS: OXYcodone/APAP 7.5/325MG TABLET PO PRN ×5 (02:34→23:54)
[2017-03-13 04:26] VITALS: BP 149/88
[2017-03-13 04:27] VITALS: BP 149/88
[2017-03-13] MEDS: HYDROmorphone 2 MG/ML, 1ML IVPush PRN ×4 (05:29→20:56)
[2017-03-13 06:29] LABS: BLOOD UREA NITROGEN 18 mg/dL (7-18)
[2017-03-13 08:50] VITALS: BP 150/86
[2017-03-13] MEDS: LACTOBACILLUS 1GM/ PACKET PO SCH ×3 (09:01→20:55)
[2017-03-13] MEDS: SERTRALINE 100MG TABLET PO SCH (09:01)
[2017-03-13] MEDS: INSULIN REGULAR MEDIUM DOSE QDAY SQ-INSULIN SCH (09:03)
[2017-03-13] MEDS: ENOXAPARIN 40 MG/0.4 ML SQ SCH (13:37)
[2017-03-13] MEDS: FLUCONAZOLE 400 MG/200 ML 200 ML IV SCH (13:37)
[2017-03-13 15:49] VITALS: BP 137/84
[2017-03-13] MEDS: FILTER, DISP 1.2 MICRON FOR TPN/PVN IV PRN (16:25)
[2017-03-13] MEDS ORDERED: DEXTROSE 70% IV SCH (17:00)
[2017-03-13] MEDS ORDERED: [UNRECOGNIZED DRUG - OTHER] IV SCH (17:00)
[2017-03-13] MEDS ORDERED: FAT EMULSIONS IV SCH (17:00)
[2017-03-13] MEDS ORDERED: AMINO ACID 10% IV SCH (17:00)
[2017-03-13 20:52] VITALS: BP 147/82
[2017-03-13] MEDS: ERTAPENEM 1 GM in SODIUM CHLORIDE 0.9% 50 ML IV SCH (20:55)
[2017-03-14 02:47] VITALS: BP 155/93
[2017-03-14] MEDS: HYDROmorphone 2 MG/ML, 1ML IVPush PRN ×4 (03:02→20:57)
[2017-03-14 06:00] LABS: BLOOD UREA NITROGEN 23 mg/dL (7-18)
[2017-03-14 06:01] LABS: ASPARTATE AMINO TRANSFERASE 27 U/L (15-37)
[2017-03-14 08:31] VITALS: BP 134/82
[2017-03-14] MEDS: SERTRALINE 100MG TABLET PO SCH (08:52)
[2017-03-14] MEDS: OXYcodone/APAP 7.5/325MG TABLET PO PRN ×4 (08:53→23:24)
[2017-03-14] MEDS: LACTOBACILLUS 1GM/ PACKET PO SCH ×3 (08:54→20:51)
[2017-03-14] MEDS: INSULIN REGULAR MEDIUM DOSE QDAY SQ-INSULIN SCH (08:54)
[2017-03-14] MEDS: ENOXAPARIN 40 MG/0.4 ML SQ SCH (12:24)
[2017-03-14] MEDS: FLUCONAZOLE 400 MG/200 ML 200 ML IV SCH (12:25)
[2017-03-14 15:19] VITALS: BP 123/72
[2017-03-14] MEDS: SODIUM CHLORIDE 0.9% 1,000 ML IV SCH (17:13)
[2017-03-14] MEDS: FILTER, DISP 1.2 MICRON FOR TPN/PVN IV PRN (17:19)
[2017-03-14] MEDS ORDERED: AMINO ACID 10% IV SCH (18:00)
[2017-03-14] MEDS ORDERED: [UNRECOGNIZED DRUG - OTHER] IV SCH (18:00)
[2017-03-14] MEDS ORDERED: FAT EMULSIONS IV SCH (18:00)
[2017-03-14] MEDS ORDERED: DEXTROSE 70% IV SCH (18:00)
[2017-03-14 19:01] VITALS: BP 138/77
[2017-03-14] MEDS: ERTAPENEM 1 GM in SODIUM CHLORIDE 0.9% 50 ML IV SCH (20:51)
[2017-03-15 03:36] VITALS: BP 130/80
[2017-03-15] MEDS: OXYcodone/APAP 7.5/325MG TABLET PO PRN ×4 (03:36→20:55)
[2017-03-15 04:20] LABS: ASPARTATE AMINO TRANSFERASE 31 U/L (15-37); BLOOD UREA NITROGEN 27 mg/dL (7-18)
[2017-03-15] MEDS: SERTRALINE 100MG TABLET PO SCH (08:06)
[2017-03-15] MEDS: LACTOBACILLUS 1GM/ PACKET PO SCH ×3 (08:07→20:54)
[2017-03-15 08:56] VITALS: BP 160/88
[2017-03-15] MEDS: INSULIN REGULAR MEDIUM DOSE QDAY SQ-INSULIN SCH (09:00)
[2017-03-15] MEDS: HYDROmorphone 2 MG/ML, 1ML IVPush PRN ×4 (09:36→23:03)
[2017-03-15] MEDS ORDERED: CATHFLO-ALTEPLASE 2 MG/2 ML CATHFLUSH ONE (10:00)
[2017-03-15] MEDS: ENOXAPARIN 40 MG/0.4 ML SQ SCH ×2 (12:00→12:33)
[2017-03-15 12:24] LABS: BLOOD UREA NITROGEN 27 mg/dL (7-18)
[2017-03-15 12:28] LABS: ASPARTATE AMINO TRANSFERASE 26 U/L (15-37)
[2017-03-15] MEDS: FLUCONAZOLE 400 MG/200 ML 200 ML IV SCH (12:33)
[2017-03-15 15:28] VITALS: BP 150/85
[2017-03-15] MEDS: SODIUM CHLORIDE 0.9% 1,000 ML IV SCH (16:58)
[2017-03-15] MEDS: FILTER, DISP 1.2 MICRON FOR TPN/PVN IV PRN (16:58)
[2017-03-15] MEDS ORDERED: [UNRECOGNIZED DRUG - OTHER] IV SCH (17:00)
[2017-03-15] MEDS ORDERED: [UNRECOGNIZED DRUG - OTHER] IV SCH (17:00)
[2017-03-15] MEDS ORDERED: DEXTROSE 70% IV SCH ×2 (17:00)
[2017-03-15] MEDS ORDERED: FAT EMULSIONS IV SCH ×2 (17:00)
[2017-03-15] MEDS ORDERED: AMINO ACID 10% IV SCH ×2 (17:00)
[2017-03-15] MEDS: CARVEDILOL 3.125 MG TABLET PO SCH (18:58)
[2017-03-15 19:50] VITALS: BP 146/82
[2017-03-15] MEDS: AMLODIPINE 5 MG TABLET PO SCH (20:54)
[2017-03-15] MEDS: ERTAPENEM 1 GM in SODIUM CHLORIDE 0.9% 50 ML IV SCH (20:54)
[2017-03-16] MEDS: OXYcodone/APAP 7.5/325MG TABLET PO PRN ×5 (00:56→20:24)
[2017-03-16 01:34] VITALS: BP 133/76
[2017-03-16] MEDS: CARVEDILOL 3.125 MG TABLET PO SCH ×2 (04:49→17:59)
[2017-03-16 06:55] VITALS: BP 118/72
[2017-03-16] MEDS: INSULIN REGULAR MEDIUM DOSE QDAY SQ-INSULIN SCH (09:00)
[2017-03-16] MEDS: AMLODIPINE 5 MG TABLET PO SCH ×2 (09:56→20:24)
[2017-03-16] MEDS: SERTRALINE 100MG TABLET PO SCH (09:56)
[2017-03-16] MEDS: LACTOBACILLUS 1GM/ PACKET PO SCH ×3 (09:56→20:24)
[2017-03-16 11:26] LABS: BLOOD UREA NITROGEN 26 mg/dL (7-18)
[2017-03-16] MEDS: ENOXAPARIN 40 MG/0.4 ML SQ SCH (13:44)
[2017-03-16] MEDS: FLUCONAZOLE 400 MG/200 ML 200 ML IV SCH (13:44)
[2017-03-16] MEDS: HYDROmorphone 2 MG/ML, 1ML IVPush PRN ×3 (13:44→21:58)
[2017-03-16 15:40] VITALS: BP 169/76
[2017-03-16] MEDS ORDERED: FAT EMULSIONS IV SCH (17:00)
[2017-03-16] MEDS ORDERED: [UNRECOGNIZED DRUG - OTHER] IV SCH (17:00)
[2017-03-16] MEDS ORDERED: AMINO ACID 10% IV SCH (17:00)
[2017-03-16] MEDS ORDERED: DEXTROSE 70% IV SCH (17:00)
[2017-03-16] MEDS: ERTAPENEM 1 GM in SODIUM CHLORIDE 0.9% 50 ML IV SCH (20:25)
[2017-03-16 20:28] VITALS: BP 136/77
[2017-03-17] MEDS: OXYcodone/APAP 7.5/325MG TABLET PO PRN ×6 (00:30→23:34)
[2017-03-17 02:55] VITALS: BP 138/76
[2017-03-17] MEDS: HYDROmorphone 2 MG/ML, 1ML IVPush PRN ×5 (03:36→22:08)
[2017-03-17 05:41] LABS: BLOOD UREA NITROGEN 27 mg/dL (7-18)
[2017-03-17] MEDS: CARVEDILOL 3.125 MG TABLET PO SCH ×2 (06:38→18:02)
[2017-03-17 08:38] VITALS: BP 134/78
[2017-03-17] MEDS: SERTRALINE 100MG TABLET PO SCH (08:46)
[2017-03-17] MEDS: LACTOBACILLUS 1GM/ PACKET PO SCH ×3 (08:46→22:07)
[2017-03-17] MEDS: AMLODIPINE 5 MG TABLET PO SCH ×2 (08:46→22:07)
[2017-03-17] MEDS: INSULIN REGULAR MEDIUM DOSE QDAY SQ-INSULIN SCH (08:49)
[2017-03-17] MEDS: SODIUM CHLORIDE 0.9% 1,000 ML IV SCH (10:13)
[2017-03-17] MEDS: ENOXAPARIN 40 MG/0.4 ML SQ SCH (12:00)
[2017-03-17] MEDS: FLUCONAZOLE 400 MG/200 ML 200 ML IV SCH (12:19)
[2017-03-17 14:02] VITALS: BP 126/74
[2017-03-17] MEDS ORDERED: FAT EMULSIONS IV SCH (17:00)
[2017-03-17] MEDS ORDERED: DEXTROSE 70% IV SCH (17:00)
[2017-03-17] MEDS ORDERED: AMINO ACID 10% IV SCH (17:00)
[2017-03-17] MEDS ORDERED: [UNRECOGNIZED DRUG - OTHER] IV SCH (17:00)
[2017-03-17 19:59] VITALS: BP 123/75
[2017-03-17] MEDS: ERTAPENEM 1 GM in SODIUM CHLORIDE 0.9% 50 ML IV SCH (22:06)
[2017-03-18 01:49] VITALS: BP 138/76
[2017-03-18] MEDS: OXYcodone/APAP 7.5/325MG TABLET PO PRN ×3 (03:25→13:24)
[2017-03-18] MEDS: HYDROmorphone 2 MG/ML, 1ML IVPush PRN ×3 (05:32→16:35)
[2017-03-18 06:10] LABS: BLOOD UREA NITROGEN 26 mg/dL (7-18)
[2017-03-18] MEDS: CARVEDILOL 3.125 MG TABLET PO SCH (06:52)
[2017-03-18 08:05] VITALS: BP 133/71
[2017-03-18] MEDS: LACTOBACILLUS 1GM/ PACKET PO SCH (08:43)
[2017-03-18] MEDS: SERTRALINE 100MG TABLET PO SCH (08:43)
[2017-03-18] MEDS: AMLODIPINE 5 MG TABLET PO SCH (08:43)
[2017-03-18] MEDS: INSULIN REGULAR MEDIUM DOSE QDAY SQ-INSULIN SCH (08:45)
[2017-03-18] MEDS ORDERED: CARV3.1212 PO (10:14)
[2017-03-18] MEDS ORDERED: POLY17PO5 PO (10:14)
[2017-03-18] MEDS ORDERED: HYDR2VIA2 IVPush (10:14)
[2017-03-18] MEDS ORDERED: TPN IV (10:14)
[2017-03-18] MEDS ORDERED: TRAM50TA2 PO (10:14)
[2017-03-18] MEDS ORDERED: OXYC1TAB8 PO (10:14)
[2017-03-18] MEDS ORDERED: ONDA4VIA4 IVPush (10:14)
[2017-03-18] MEDS ORDERED: fluconazole IV (10:14)
[2017-03-18] MEDS ORDERED: ACID1GRA2 PO (10:14)
[2017-03-18] MEDS ORDERED: ENOX40SY4 SQ (10:14)
[2017-03-18] MEDS: ENOXAPARIN 40 MG/0.4 ML SQ SCH (12:11)
[2017-03-18] MEDS: FLUCONAZOLE 400 MG/200 ML 200 ML IV SCH (12:11)
[2017-03-18 13:58] VITALS: BP 126/71
[2017-03-18] MEDS ORDERED: FILTER, DISP 1.2 MICRON FOR TPN/PVN IV PRN (17:00)
[2017-03-18] MEDS ORDERED: DEXTROSE 70% IV SCH (17:00)
[2017-03-18] MEDS ORDERED: FAT EMULSIONS IV SCH (17:00)
[2017-03-18] MEDS ORDERED: [UNRECOGNIZED DRUG - OTHER] IV SCH (17:00)
[2017-03-18] MEDS ORDERED: AMINO ACID 10% IV SCH (17:00)
[2017-03-18] MEDS ORDERED: ERTAPENEM 1 GM in SODIUM CHLORIDE 0.9% 100 ML IV SCH (21:00)
== END 2017-03-18 16:43 | DRG 853 ==
LOC: ED 18:27 → EDIP 19:12 → SUATTDRO 19:14 → 3NW 20:14 → CCU 03-02 19:45 → 4NOR 03-04 11:26
PROVIDERS: ADMIT Family Medicine
PROC: 0DN80ZZ Release Small Intestine, Open Approach (ICD-10-PCS; 2017-02-27)
PROC: 30233N1 Transfusion of Nonautologous Red Blood Cells into Peripheral Vein, Percutaneous Approach (ICD-10-PCS; 2017-03-02)
PROC: 0DB80ZZ Excision of Small Intestine, Open Approach (ICD-10-PCS; principal; 2017-03-02 15:00)
DX: A41.9 Sepsis, unspecified organism (principal); E43 Unspecified severe protein-calorie malnutrition; K65.9 Peritonitis, unspecified; N17.0 Acute kidney failure with tubular necrosis; D62 Acute posthemorrhagic anemia; K50.90 Crohn's disease, unspecified, without complications; K56.7 Ileus, unspecified; I10 Essential (primary) hypertension; F32.9 Major depressive disorder, single episode, unspecified; G89.29 Other chronic pain; K66.0 Peritoneal adhesions (postprocedural) (postinfection); R65.20 Severe sepsis without septic shock; Z66 Do not resuscitate; Z79.2 Long term (current) use of antibiotics; Z83.3 Family history of diabetes mellitus; Z86.14 Personal history of Methicillin resistant Staphylococcus aureus infection; Z93.3 Colostomy status; Z87.891 Personal history of nicotine dependence; Z90.49 Acquired absence of other specified parts of digestive tract; Z88.8 Allergy status to other drugs, medicaments and biological substances; Z68.26 Body mass index [BMI] 26.0-26.9, adult
CPT/HCPCS: 36415; 71010; 74020; 74022; 74177; 74245; 76080; 80048; 80053; 80202; 81003; 82533; 82962; 83605; 83690; 83735; 84100; 84134; 84145; 84478; 85014; 85018; 85025; 85610; 85730; 86850; 86900; 86923; 87040; 87070; 87075; 87081; 87205; 88307; 93005; 96361; 96374; 96375; 96376; C1729; J0610; J1170; J1335; J1450; J1650; J2250; J2405; J2704; J2710; J2997; J3010; J3370; J3475; J3480; J3490; P9045; Q0162; Q9967; C1765; J2370; J3420; J7030; J7040; J7050; P9016; S0028

== ENCOUNTER 2017-05-06 03:52 | Inpatient (IN) | payer MEDICARE ==
[~2017-05-06] VITALS: Ht 162.6 cm; Wt 73.6 kg
[~2017-05-06 03:52] MED LIST changes: +ACID1GRA2 PO; +CARV3.1212 PO; +ENOX40SY4 SQ; +FLUC200T4 PO; +HYDR2VIA2 IVPush; +ONDA4VIA4 IVPush; +POLY17PO5 PO; +TESTERONE; +TPN IV; +TRAM50TA2 PO; +fluconazole IV
[2017-05-06] MEDS ORDERED: OXYC-302 PO (04:25)
[2017-05-06] MEDS ORDERED: SODIUM CHLORIDE 0.9% 1,000ML IVBOLUS ONE ×2 (04:30→07:30)
[2017-05-06] MEDS ORDERED: ONDANSETRON 2MG/ML, 2ML IVPush ONE (05:00)
[2017-05-06] MEDS ORDERED: MORPHINE SULFATE 4 MG/ML, 1ML ONE ×2 (05:05→05:42)
[2017-05-06] MEDS ORDERED: ONDANSETRON 2MG/ML, 2ML ONE (05:06)
[2017-05-06] MEDS: MORPHINE SULFATE 4 MG/ML, 1ML IVPush PRN ×2 (05:09→05:59)
[2017-05-06 05:28] LABS: ASPARTATE AMINO TRANSFERASE 23 U/L (15-37); BLOOD UREA NITROGEN 26 mg/dL (7-18)
[2017-05-06] MEDS ORDERED: OMNIPAQUE 350 MG/ML, 100ML BOTTLE ONE (05:59)
[2017-05-06] MEDS ORDERED: ACETAMINOPHEN 325 MG TABLET ONE (06:48)
[2017-05-06] MEDS ORDERED: ACETAMINOPHEN 325 MG TABLET PO ONE (07:00)
[2017-05-06] MEDS ORDERED: HYDROmorphone 1 MG/ML, 1ML ONE (07:13)
[2017-05-06] MEDS ORDERED: HYDROmorphone 1 MG/ML, 1ML IVPush PRN (07:30)
[2017-05-06] MEDS: SODIUM CHLORIDE 0.9% 1,000 ML IV SCH ×2 (10:13→16:53)
[2017-05-06] MEDS ORDERED: FLUCONAZOLE 200 MG/100 ML 100 ML IV SCH (10:30)
[2017-05-06] MEDS: ENOXAPARIN 40 MG/0.4 ML SQ SCH (10:30)
[2017-05-06] MEDS ORDERED: ERTAPENEM 1 GM in SODIUM CHLORIDE 0.9% 50 ML IV SCH (10:30)
[2017-05-06] MEDS ORDERED: ONDANSETRON 2MG/ML, 2ML IVPush PRN (10:30)
[2017-05-06] MEDS: morphine SULFATE 10 MG/ML, 1ML IVPush PRN ×3 (10:59→19:42)
[2017-05-06 11:00] VITALS: BP 112/55
[2017-05-06] MEDS: CARVEDILOL 3.125 MG TABLET PO SCH (14:24)
[2017-05-06] MEDS ORDERED: ACETAMINOPHEN 325 MG TABLET PO PRN (14:30)
[2017-05-06 15:23] VITALS: BP 128/76
[2017-05-06] MEDS ORDERED: TPN PER PHARMACY MC PRN (15:30)
[2017-05-06] MEDS ORDERED: PVN PER PHARMACY IV SCH (17:00)
[2017-05-06] MEDS ORDERED: DEXTROSE 10% 500 ML IV PRN (17:00)
[2017-05-06] MEDS ORDERED: FAT EMULSIONS IV SCH (17:00)
[2017-05-06] MEDS ORDERED: FILTER, DISP 1.2 MICRON FOR TPN/PVN IV PRN (17:00)
[2017-05-06] MEDS ORDERED: AMINO ACID 10% IV SCH (17:00)
[2017-05-06] MEDS ORDERED: DEXTROSE 70% IV SCH (17:00)
[2017-05-06] MEDS ORDERED: DEXTROSE 50%, 50ML SYRINGE IVPush PRN (17:00)
[2017-05-06] MEDS ORDERED: [UNRECOGNIZED DRUG - OTHER] IV SCH (17:00)
[2017-05-06 19:38] VITALS: BP 124/99
[2017-05-06] MEDS ORDERED: VANCOMYCIN PER PHARMACY MC PRN (20:00)
[2017-05-06] MEDS: INSULIN REGULAR MEDIUM DOSE Q6H X 48HRS SQ-INSULIN SCH (20:28)
[2017-05-06] MEDS ORDERED: PHARMACOKINETIC MONITORING MC PRN (20:30)
[2017-05-06] MEDS ORDERED: PHARMACOKINETIC CONSULTATION MC ONE (20:30)
[2017-05-06] MEDS ORDERED: VANCOMYCIN 1,500 MG in SODIUM CHLORIDE 0.9% 250 ML IV SCH (21:00)
[2017-05-06] MEDS: DIPHENHYDRAMINE 25 MG CAPSULE PO PRN (22:38)
[2017-05-07] MEDS: morphine SULFATE 10 MG/ML, 1ML IVPush PRN ×5 (01:34→21:33)
[2017-05-07 01:42] VITALS: BP 117/59
[2017-05-07] MEDS: INSULIN REGULAR MEDIUM DOSE Q6H X 48HRS SQ-INSULIN SCH ×2 (03:00→09:00)
[2017-05-07 04:36] LABS: ASPARTATE AMINO TRANSFERASE 56 U/L (15-37); BLOOD UREA NITROGEN 13 mg/dL (7-18)
[2017-05-07] MEDS: CARVEDILOL 3.125 MG TABLET PO SCH ×2 (05:50→17:51)
[2017-05-07] MEDS ORDERED: POTASSIUM CHLORIDE 40 MEQ in SODIUM CHLORIDE 0.9% 500 ML IV ONE (08:30)
[2017-05-07] MEDS: SERTRALINE 100MG TABLET PO SCH (09:06)
[2017-05-07] MEDS: ENOXAPARIN 40 MG/0.4 ML SQ SCH (09:07)
[2017-05-07] MEDS: AMLODIPINE 5 MG TABLET PO SCH (09:11)
[2017-05-07 09:16] VITALS: BP 120/71
[2017-05-07] MEDS ORDERED: SILVER NITRATE STICK TP ONE (10:30)
[2017-05-07 12:41] VITALS: BP 114/65
[2017-05-07] MEDS: VANCOMYCIN 1,400 MG in SODIUM CHLORIDE 0.9% 250 ML IV SCH (14:13)
[2017-05-07] MEDS ORDERED: FILTER, DISP 1.2 MICRON FOR TPN/PVN IV PRN (17:00)
[2017-05-07] MEDS ORDERED: FAT EMULSIONS IV SCH ×3 (17:00→17:30)
[2017-05-07] MEDS ORDERED: [UNRECOGNIZED DRUG - OTHER] IV SCH (17:00)
[2017-05-07] MEDS ORDERED: AMINO ACID 10% IV SCH ×3 (17:00→17:30)
[2017-05-07] MEDS ORDERED: [UNRECOGNIZED DRUG - OTHER] IV SCH ×2 (17:00→17:30)
[2017-05-07] MEDS ORDERED: DEXTROSE 70% IV SCH ×3 (17:00→17:30)
[2017-05-07 19:54] VITALS: BP 128/68
[2017-05-08 02:07] VITALS: BP 119/86
[2017-05-08] MEDS: VANCOMYCIN 1,400 MG in SODIUM CHLORIDE 0.9% 250 ML IV SCH ×2 (02:24→14:47)
[2017-05-08] MEDS: morphine SULFATE 10 MG/ML, 1ML IVPush PRN ×4 (04:27→19:58)
[2017-05-08 05:38] LABS: BLOOD UREA NITROGEN 9 mg/dL (7-18)
[2017-05-08] MEDS: CARVEDILOL 3.125 MG TABLET PO SCH ×2 (06:07→17:27)
[2017-05-08 07:35] VITALS: BP 118/59
[2017-05-08] MEDS: INSULIN REGULAR MEDIUM DOSE QDAY SQ-INSULIN SCH (09:00)
[2017-05-08] MEDS: SERTRALINE 100MG TABLET PO SCH (10:09)
[2017-05-08] MEDS: AMLODIPINE 5 MG TABLET PO SCH (10:09)
[2017-05-08 13:20] VITALS: BP 117/60
[2017-05-08] MEDS: ENOXAPARIN 40 MG/0.4 ML SQ SCH (14:47)
[2017-05-08] MEDS ORDERED: LORazepam 1MG TABLET ONE (15:55)
[2017-05-08] MEDS: LORazepam 1MG TABLET PO PRN (16:01)
[2017-05-08] MEDS ORDERED: FAT EMULSIONS IV SCH (17:00)
[2017-05-08] MEDS ORDERED: DEXTROSE 70% IV SCH (17:00)
[2017-05-08] MEDS ORDERED: AMINO ACID 10% IV SCH (17:00)
[2017-05-08] MEDS ORDERED: FILTER, DISP 1.2 MICRON FOR TPN/PVN IV PRN (17:00)
[2017-05-08] MEDS ORDERED: [UNRECOGNIZED DRUG - OTHER] IV SCH (17:00)
[2017-05-08 20:06] VITALS: BP 134/79
[2017-05-09 01:29] VITALS: BP 129/62
[2017-05-09] MEDS: VANCOMYCIN 1,400 MG in SODIUM CHLORIDE 0.9% 250 ML IV SCH ×2 (02:32→14:38)
[2017-05-09 02:46] LABS: BLOOD UREA NITROGEN 7 mg/dL (7-18)
[2017-05-09] MEDS: morphine SULFATE 10 MG/ML, 1ML IVPush PRN ×3 (05:46→21:34)
[2017-05-09] MEDS: CARVEDILOL 3.125 MG TABLET PO SCH ×2 (06:09→17:08)
[2017-05-09 08:05] VITALS: BP 118/67
[2017-05-09] MEDS: SERTRALINE 100MG TABLET PO SCH (08:27)
[2017-05-09] MEDS: AMLODIPINE 5 MG TABLET PO SCH (08:27)
[2017-05-09] MEDS: INSULIN REGULAR MEDIUM DOSE QDAY SQ-INSULIN SCH (08:27)
[2017-05-09] MEDS: LORazepam 1MG TABLET PO PRN (10:17)
[2017-05-09 13:36] VITALS: BP 124/79
[2017-05-09] MEDS: DIPHENHYDRAMINE 25 MG CAPSULE PO PRN (14:38)
[2017-05-09] MEDS: ENOXAPARIN 40 MG/0.4 ML SQ SCH (14:38)
[2017-05-09] MEDS ORDERED: FAT EMULSIONS IV SCH (17:00)
[2017-05-09] MEDS ORDERED: FILTER, DISP 1.2 MICRON FOR TPN/PVN IV PRN (17:00)
[2017-05-09] MEDS ORDERED: [UNRECOGNIZED DRUG - OTHER] IV SCH (17:00)
[2017-05-09] MEDS ORDERED: DEXTROSE 70% IV SCH (17:00)
[2017-05-09] MEDS ORDERED: AMINO ACID 10% IV SCH (17:00)
[2017-05-09 19:46] VITALS: BP 130/83
[2017-05-10 01:19] VITALS: BP 114/69
[2017-05-10] MEDS: VANCOMYCIN 1,400 MG in SODIUM CHLORIDE 0.9% 250 ML IV SCH ×2 (01:59→14:10)
[2017-05-10] MEDS: morphine SULFATE 10 MG/ML, 1ML IVPush PRN ×4 (05:37→20:55)
[2017-05-10] MEDS: CARVEDILOL 3.125 MG TABLET PO SCH ×2 (05:37→17:54)
[2017-05-10 05:39] VITALS: BP 126/77
[2017-05-10 08:11] VITALS: BP 129/79
[2017-05-10] MEDS: SERTRALINE 100MG TABLET PO SCH (08:13)
[2017-05-10] MEDS: AMLODIPINE 5 MG TABLET PO SCH (08:13)
[2017-05-10] MEDS: ENOXAPARIN 40 MG/0.4 ML SQ SCH (13:44)
[2017-05-10 14:28] VITALS: BP 117/72
[2017-05-10] MEDS: SODIUM CHLORIDE 0.9% 1,000 ML IV SCH (17:30)
[2017-05-10] MEDS: FAMOTIDINE 20 MG TABLET PO PRN (17:45)
[2017-05-10 20:45] VITALS: BP 134/78
[2017-05-11] MEDS: VANCOMYCIN 1,400 MG in SODIUM CHLORIDE 0.9% 250 ML IV SCH (02:11)
[2017-05-11 02:16] VITALS: BP 128/70
[2017-05-11] MEDS: morphine SULFATE 10 MG/ML, 1ML IVPush PRN ×4 (02:29→19:32)
[2017-05-11] MEDS: CARVEDILOL 3.125 MG TABLET PO SCH ×2 (05:39→17:30)
[2017-05-11 05:40] VITALS: BP 116/67
[2017-05-11 05:51] LABS: BLOOD UREA NITROGEN 11 mg/dL (7-18)
[2017-05-11 08:25] VITALS: BP 120/72
[2017-05-11] MEDS: SERTRALINE 100MG TABLET PO SCH (09:03)
[2017-05-11] MEDS: AMLODIPINE 5 MG TABLET PO SCH (09:03)
[2017-05-11 13:17] VITALS: BP 124/62
[2017-05-11] MEDS: METRONIDAZOLE PMX 500MG/100ML 100 ML IV SCH ×2 (14:41→22:04)
[2017-05-11] MEDS: ENOXAPARIN 40 MG/0.4 ML SQ SCH (17:30)
[2017-05-11] MEDS: FAMOTIDINE 20 MG TABLET PO PRN (17:30)
[2017-05-11] MEDS: SODIUM CHLORIDE 0.9% 1,000 ML IV SCH (17:37)
[2017-05-11 20:12] VITALS: BP 131/71
[2017-05-12] MEDS: VANCOMYCIN 1,400 MG in SODIUM CHLORIDE 0.9% 250 ML IV SCH (01:39)
[2017-05-12] MEDS: morphine SULFATE 10 MG/ML, 1ML IVPush PRN ×5 (01:45→23:18)
[2017-05-12 02:11] VITALS: BP 133/72
[2017-05-12 05:32] VITALS: BP 137/77
[2017-05-12] MEDS: METRONIDAZOLE PMX 500MG/100ML 100 ML IV SCH (05:35)
[2017-05-12] MEDS: CARVEDILOL 3.125 MG TABLET PO SCH ×2 (05:35→17:52)
[2017-05-12 06:44] LABS: ASPARTATE AMINO TRANSFERASE 19 U/L (15-37); BLOOD UREA NITROGEN 9 mg/dL (7-18)
[2017-05-12 08:14] VITALS: BP 131/74
[2017-05-12] MEDS: SODIUM CHLORIDE 0.9% 1,000 ML IV SCH (08:30)
[2017-05-12] MEDS: AMLODIPINE 5 MG TABLET PO SCH (09:16)
[2017-05-12] MEDS: SERTRALINE 100MG TABLET PO SCH (09:16)
[2017-05-12] MEDS: ENOXAPARIN 40 MG/0.4 ML SQ SCH (15:31)
[2017-05-12] MEDS: POTASSIUM CHLORIDE 20 MEQ TAB.ER.PRT PO SCH (15:31)
[2017-05-12] MEDS: metroNIDAZOLE 500 MG TABLET PO SCH ×2 (15:31→20:15)
[2017-05-12 15:45] VITALS: BP 146/86
[2017-05-12 16:38] VITALS: BP 151/83
[2017-05-12] MEDS ORDERED: VISIPAQUE 270 MG/ML, 50ML BOTTLE ONE (16:38)
[2017-05-12 20:02] VITALS: BP 132/71
[2017-05-13] MEDS: VANCOMYCIN 1,400 MG in SODIUM CHLORIDE 0.9% 250 ML IV SCH (01:38)
[2017-05-13 02:12] VITALS: BP 137/76
[2017-05-13] MEDS: morphine SULFATE 10 MG/ML, 1ML IVPush PRN (04:15)
[2017-05-13] MEDS: CARVEDILOL 3.125 MG TABLET PO SCH (05:58)
[2017-05-13] MEDS ORDERED: METR500T PO (06:57)
[2017-05-13] MEDS ORDERED: FAMO20TA7 PO (06:57)
[2017-05-13 07:45] VITALS: BP 131/76
[2017-05-13] MEDS: SERTRALINE 100MG TABLET PO SCH (08:34)
[2017-05-13] MEDS: AMLODIPINE 5 MG TABLET PO SCH (08:34)
[2017-05-13] MEDS: POTASSIUM CHLORIDE 20 MEQ TAB.ER.PRT PO SCH (08:34)
[2017-05-13] MEDS: metroNIDAZOLE 500 MG TABLET PO SCH (08:34)
[2017-05-13] MEDS: SODIUM CHLORIDE 0.9% 1,000 ML IV SCH ×2 (08:34→11:10)
== END 2017-05-13 17:50 | disposition home or self-care (01) | DRG 314 ==
LOC: ED 04:31 → EDIP 08:27 → 4WST 10:22
PROVIDERS: ADMIT Internal Medicine; ATTEND Internal Medicine
PROC: 02PYX3Z Removal of Infusion Device from Great Vessel, External Approach (ICD-10-PCS; 2017-05-06)
PROC: 02HV33Z Insertion of Infusion Device into Superior Vena Cava, Percutaneous Approach (ICD-10-PCS; principal; 2017-05-12)
PROC: B5181ZA Fluoroscopy of Superior Vena Cava using Low Osmolar Contrast, Guidance (ICD-10-PCS; 2017-05-12)
PROC: B548ZZA Ultrasonography of Superior Vena Cava, Guidance (ICD-10-PCS; 2017-05-12)
DX: T80.211A Bloodstream infection due to central venous catheter, initial encounter (principal); K85.90 Acute pancreatitis without necrosis or infection, unspecified; E43 Unspecified severe protein-calorie malnutrition; K63.2 Fistula of intestine; K50.90 Crohn's disease, unspecified, without complications; R78.81 Bacteremia; I10 Essential (primary) hypertension; B95.7 Other staphylococcus as the cause of diseases classified elsewhere; E87.6 Hypokalemia; F32.9 Major depressive disorder, single episode, unspecified; Z68.27 Body mass index [BMI] 27.0-27.9, adult; T78.3XXA Angioneurotic edema, initial encounter; Y84.8 Other medical procedures as the cause of abnormal reaction of the patient, or of later complication, without mention of misadventure at the time of the procedure; Z66 Do not resuscitate; Z93.3 Colostomy status
CPT/HCPCS: 36415; 36569; 71010; 74177; 76937; 77001; 80048; 80053; 80202; 81001; 81003; 82550; 82962; 83605; 83690; 83735; 84100; 84134; 84145; 84478; 85025; 87040; 87150; 87186; 93306; 96361; 96374; 96375; 96376; J0610; J1170; J1650; J2405; J3370; J3475; J3480; Q9966; Q9967; C1751; C1769; J1644; J1720; J2270; J3420; J7030; J7040; J7050; Q0163; S0028

== ENCOUNTER 2017-05-18 19:53 | Inpatient (IN) | payer MEDICARE ==
[~2017-05-18] VITALS: Ht 162.6 cm; Wt 72.0 kg
[~2017-05-18 19:53] MED LIST changes: +FAMO20TA7 PO; +METR500T PO; +OXYC-302 PO
[2017-05-18] MEDS ORDERED: SODIUM CHLORIDE FLUSH 10ML SYR IVF ONE (20:00)
[2017-05-18] MEDS ORDERED: FAMOTIDINE 20 MG/2 ML IVP ONE (20:00)
[2017-05-18] MEDS ORDERED: SODIUM CHLORIDE 0.9% 1,000ML IVBOLUS ONE (20:00)
[2017-05-18] MEDS ORDERED: ONDANSETRON 2MG/ML, 2ML IVPush ONE (20:00)
[2017-05-18] MEDS ORDERED: MORPHINE SULFATE 4 MG/ML, 1ML ONE ×2 (20:30→21:19)
[2017-05-18] MEDS ORDERED: FAMOTIDINE 20 MG/2 ML ONE (20:31)
[2017-05-18] MEDS ORDERED: ONDANSETRON 2MG/ML, 2ML ONE (20:31)
[2017-05-18] MEDS: MORPHINE SULFATE 4 MG/ML, 1ML IVPush PRN ×2 (20:55→21:22)
[2017-05-18 21:13] LABS: HEMATOCRIT 35.2 % (39.2-51.8); HEMOGLOBIN 11.5 g/dL (13.7-18.0); WHITE BLOOD COUNT 14.4 x10^3/uL (3.4-10)
[2017-05-18 21:24] LABS: IS PT STATUS REG ER OR PRE ER? YES
[2017-05-18 21:25] LABS: ASPARTATE AMINO TRANSFERASE 91 U/L (15-37); BLOOD UREA NITROGEN 30 mg/dL (7-18)
[2017-05-18 21:44] LABS: DIFF TOTAL CELLS COUNTED 100 CELL DIFF
[2017-05-18 21:46] LABS: ANISOCYTOSIS 1+; POLYCHROMASIA 1+; VERIFY COUNTS? YES
[2017-05-18] MEDS ORDERED: HYDROmorphone 1 MG/ML, 1ML ONE (22:42)
[2017-05-18] MEDS ORDERED: LORazepam 2 MG/ML, 1ML ONE (22:43)
[2017-05-18] MEDS ORDERED: LORazepam 2 MG/ML, 1ML IVPush ONE (23:00)
[2017-05-18] MEDS ORDERED: HYDROmorphone 1 MG/ML, 1ML IVPush PRN (23:00)
[2017-05-18 23:54] VITALS: BP 132/71
[2017-05-19] MEDS ORDERED: BISACODYL 10 MG SUPP PR PRN
[2017-05-19] MEDS ORDERED: hydrALAzine 20 MG/ML, 1ML IVPush PRN
[2017-05-19] MEDS ORDERED: ONDANSETRON 2MG/ML, 2ML IVPush PRN
[2017-05-19] MEDS: HYDROmorphone 2 MG/ML, 1ML IVPush PRN ×6 (00:38→21:12)
[2017-05-19] MEDS: ENOXAPARIN 40 MG/0.4 ML SQ SCH (00:39)
[2017-05-19] MEDS: NS + 20MEQ KCL 1,000 ML IV SCH ×4 (02:02→22:43)
[2017-05-19 02:27] VITALS: BP 126/73
[2017-05-19 05:16] LABS: HEMATOCRIT 32.7 % (39.2-51.8); HEMOGLOBIN 10.7 g/dL (13.7-18.0); WHITE BLOOD COUNT 14.5 x10^3/uL (3.4-10)
[2017-05-19 05:30] LABS: ASPARTATE AMINO TRANSFERASE 77 U/L (15-37); BLOOD UREA NITROGEN 24 mg/dL (7-18)
[2017-05-19] MEDS: LORazepam 2 MG/ML, 1ML IVPush PRN ×3 (05:45→16:32)
[2017-05-19] MEDS: CARVEDILOL 3.125 MG TABLET PO SCH ×2 (05:47→17:31)
[2017-05-19 07:18] VITALS: BP 132/75
[2017-05-19] MEDS: metroNIDAZOLE 500 MG TABLET PO SCH ×3 (08:46→21:12)
[2017-05-19] MEDS: AMLODIPINE 5 MG TABLET PO SCH (08:46)
[2017-05-19] MEDS ORDERED: PANTOPRAZOLE 40 MG IV IVPush SCH (09:00)
[2017-05-19] MEDS ORDERED: MAALOX/HYOSCYAMINE/LIDOCAINE 45 ML BTL PO PRN (09:00)
[2017-05-19] MEDS: PANTOPRAZOLE 40 MG IV IVPush SCH ×2 (09:00→21:12)
[2017-05-19] MEDS: SUCRALFATE 1 GM/10 ML UDC PO SCH ×3 (11:53→21:12)
[2017-05-19 13:42] VITALS: BP 138/75
[2017-05-19 19:59] VITALS: BP 128/69
[2017-05-20] MEDS: ENOXAPARIN 40 MG/0.4 ML SQ SCH (00:28)
[2017-05-20 01:09] VITALS: BP 111/69
[2017-05-20] MEDS: HYDROmorphone 2 MG/ML, 1ML IVPush PRN ×6 (01:20→21:42)
[2017-05-20 04:57] LABS: HEMATOCRIT 29.4 % (39.2-51.8); HEMOGLOBIN 9.8 g/dL (13.7-18.0); WHITE BLOOD COUNT 10.6 x10^3/uL (3.4-10)
[2017-05-20 05:00] LABS: BLOOD UREA NITROGEN 12 mg/dL (7-18)
[2017-05-20 05:05] LABS: ASPARTATE AMINO TRANSFERASE 85 U/L (15-37)
[2017-05-20] MEDS: CARVEDILOL 3.125 MG TABLET PO SCH ×2 (05:41→18:09)
[2017-05-20] MEDS: NS + 20MEQ KCL 1,000 ML IV SCH (07:18)
[2017-05-20 07:20] VITALS: BP 121/73
[2017-05-20] MEDS: SUCRALFATE 1 GM/10 ML UDC PO SCH ×4 (07:42→21:27)
[2017-05-20] MEDS: PANTOPRAZOLE 40 MG IV IVPush SCH ×2 (09:02→21:27)
[2017-05-20] MEDS: AMLODIPINE 5 MG TABLET PO SCH (09:02)
[2017-05-20] MEDS: metroNIDAZOLE 500 MG TABLET PO SCH ×3 (09:02→21:27)
[2017-05-20 13:56] VITALS: BP 114/66
[2017-05-20] MEDS ORDERED: POTASSIUM PHOSPHATE 44 MEQ in SODIUM CHLORIDE 0.9% 500 ML IV ONE (17:00)
[2017-05-20] MEDS ORDERED: MAGNESIUM SULFATE PMX 4GM/100M 100 ML IV ONE (17:00)
[2017-05-20 19:30] VITALS: BP 132/67
[2017-05-21] MEDS: ENOXAPARIN 40 MG/0.4 ML SQ SCH ×2 (00:31→23:49)
[2017-05-21] MEDS: HYDROmorphone 2 MG/ML, 1ML IVPush PRN ×8 (01:27→23:47)
[2017-05-21 01:46] VITALS: BP 129/69
[2017-05-21] MEDS: CARVEDILOL 3.125 MG TABLET PO SCH ×2 (05:05→17:38)
[2017-05-21 05:28] LABS: HEMATOCRIT 28.8 % (39.2-51.8); HEMOGLOBIN 9.5 g/dL (13.7-18.0); WHITE BLOOD COUNT 8.7 x10^3/uL (3.4-10)
[2017-05-21 05:32] LABS: BLOOD UREA NITROGEN 10 mg/dL (7-18)
[2017-05-21 05:35] LABS: ASPARTATE AMINO TRANSFERASE 70 U/L (15-37)
[2017-05-21] MEDS: NS + 20MEQ KCL 1,000 ML IV SCH ×3 (07:17→20:58)
[2017-05-21] MEDS: SUCRALFATE 1 GM/10 ML UDC PO SCH ×4 (07:17→20:43)
[2017-05-21] MEDS: PANTOPRAZOLE 40 MG IV IVPush SCH ×2 (08:08→20:41)
[2017-05-21] MEDS: AMLODIPINE 5 MG TABLET PO SCH (08:08)
[2017-05-21] MEDS: metroNIDAZOLE 500 MG TABLET PO SCH ×3 (08:08→20:43)
[2017-05-21 08:35] VITALS: BP 127/74
[2017-05-21] MEDS ORDERED: POTASSIUM CHLORIDE 40 MEQ in SODIUM CHLORIDE 0.9% 500 ML IV ONE (10:30)
[2017-05-21 16:05] VITALS: BP 143/80
[2017-05-21 18:54] VITALS: BP 137/73
[2017-05-22 01:39] VITALS: BP 147/75
[2017-05-22] MEDS: HYDROmorphone 2 MG/ML, 1ML IVPush PRN ×2 (02:49→06:16)
[2017-05-22] MEDS: NS + 20MEQ KCL 1,000 ML IV SCH (05:20)
[2017-05-22 05:47] LABS: HEMATOCRIT 28.6 % (39.2-51.8); HEMOGLOBIN 9.3 g/dL (13.7-18.0); WHITE BLOOD COUNT 9.1 x10^3/uL (3.4-10)
[2017-05-22 06:00] LABS: ASPARTATE AMINO TRANSFERASE 36 U/L (15-37); BLOOD UREA NITROGEN 5 mg/dL (7-18)
[2017-05-22 06:10] VITALS: BP 131/74
[2017-05-22] MEDS: CARVEDILOL 3.125 MG TABLET PO SCH ×2 (06:11→17:10)
[2017-05-22 06:13] LABS: DIFF TOTAL CELLS COUNTED 100 CELL DIFF
[2017-05-22 06:16] LABS: ANISOCYTOSIS 1+; POLYCHROMASIA 1+; VERIFY COUNTS? YES
[2017-05-22] MEDS: SUCRALFATE 1 GM/10 ML UDC PO SCH ×4 (06:37→22:07)
[2017-05-22 07:37] VITALS: BP 148/80
[2017-05-22] MEDS: PANTOPRAZOLE 40 MG IV IVPush SCH ×2 (08:03→22:07)
[2017-05-22] MEDS: AMLODIPINE 5 MG TABLET PO SCH (08:03)
[2017-05-22] MEDS: metroNIDAZOLE 500 MG TABLET PO SCH ×3 (08:03→22:07)
[2017-05-22] MEDS ORDERED: HYDROcodone/APAP 5/325 TABLET PO PRN (09:33)
[2017-05-22] MEDS ORDERED: POLYETHYLENE GLYCOL 17 GM PACKET NG ONE (10:00)
[2017-05-22] MEDS ORDERED: POLYETHYLENE GLYCOL 17 GM PACKET PO SCH (10:30)
[2017-05-22] MEDS: SERTRALINE 100MG TABLET PO SCH (12:16)
[2017-05-22] MEDS ORDERED: POLYETHYLENE GLYCOL 17 GM PACKET PO PRN (12:30)
[2017-05-22] MEDS: OXYcodone IR 5MG TABLET PO PRN ×3 (14:02→22:07)
[2017-05-22 14:19] VITALS: BP 132/83
[2017-05-22 19:47] VITALS: BP 134/75
[2017-05-23] MEDS: ENOXAPARIN 40 MG/0.4 ML SQ SCH (00:32)
[2017-05-23] MEDS: OXYcodone IR 5MG TABLET PO PRN ×4 (02:08→18:08)
[2017-05-23 02:23] VITALS: BP 129/73
[2017-05-23 05:49] LABS: HEMATOCRIT 29.9 % (39.2-51.8); HEMOGLOBIN 9.8 g/dL (13.7-18.0); WHITE BLOOD COUNT 9.3 x10^3/uL (3.4-10)
[2017-05-23 05:59] LABS: BLOOD UREA NITROGEN 5 mg/dL (7-18)
[2017-05-23 06:03] LABS: ASPARTATE AMINO TRANSFERASE 26 U/L (15-37)
[2017-05-23] MEDS: CARVEDILOL 3.125 MG TABLET PO SCH ×2 (06:33→18:08)
[2017-05-23] MEDS: SUCRALFATE 1 GM/10 ML UDC PO SCH ×3 (06:33→16:06)
[2017-05-23] MEDS: AMLODIPINE 5 MG TABLET PO SCH (08:05)
[2017-05-23] MEDS: SERTRALINE 100MG TABLET PO SCH (08:05)
[2017-05-23] MEDS: metroNIDAZOLE 500 MG TABLET PO SCH ×2 (08:05→16:06)
[2017-05-23 08:15] VITALS: BP 154/90
[2017-05-23] MEDS: PANTOPRAZOLE 40 MG IV IVPush SCH (10:34)
[2017-05-23] MEDS ORDERED: SUCR1ORA2 PO (13:05)
[2017-05-23] MEDS ORDERED: OXYC5TAB3 PO (13:05)
[2017-05-23] MEDS ORDERED: POLY17PO5 PO (13:05)
[2017-05-23] MEDS ORDERED: OMEP-110 PO (13:05)
[2017-05-23] MEDS ORDERED: LACT1CAP24 PO (13:05)
[2017-05-23] MEDS ORDERED: Maalox/Hyoscyamine/Lidocaine PO (13:05)
[2017-05-23] MEDS ORDERED: POTA20TA6 PO (13:15)
[2017-05-23 15:34] VITALS: BP 150/80
[2017-05-23] MEDS: POTASSIUM CHLORIDE 20 MEQ TAB.ER.PRT PO SCH ×2 (16:06→18:08)
== END 2017-05-23 18:15 | disposition home or self-care (01) | DRG 682 ==
LOC: ED 22:10 → EDIP 22:43 → 4NOR 23:35
PROVIDERS: ADMIT Internal Medicine; ATTEND Internal Medicine
PROC: 0T9B70Z Drainage of Bladder with Drainage Device, Via Natural or Artificial Opening (ICD-10-PCS; principal; 2017-05-18)
DX: N17.0 Acute kidney failure with tubular necrosis (principal); E43 Unspecified severe protein-calorie malnutrition; K85.90 Acute pancreatitis without necrosis or infection, unspecified; R17 Unspecified jaundice; K50.00 Crohn's disease of small intestine without complications; K29.70 Gastritis, unspecified, without bleeding; E83.39 Other disorders of phosphorus metabolism; E83.42 Hypomagnesemia; F32.9 Major depressive disorder, single episode, unspecified; E87.6 Hypokalemia; I10 Essential (primary) hypertension; R16.0 Hepatomegaly, not elsewhere classified; K43.9 Ventral hernia without obstruction or gangrene; Z66 Do not resuscitate; Z82.49 Family history of ischemic heart disease and other diseases of the circulatory system; Z83.3 Family history of diabetes mellitus; Z86.14 Personal history of Methicillin resistant Staphylococcus aureus infection; Z68.27 Body mass index [BMI] 27.0-27.9, adult; Z87.891 Personal history of nicotine dependence; Z93.2 Ileostomy status; Z90.49 Acquired absence of other specified parts of digestive tract; Z88.1 Allergy status to other antibiotic agents; Z88.8 Allergy status to other drugs, medicaments and biological substances
CPT/HCPCS: 36415; 74022; 74176; 74181; 80053; 81001; 83690; 83735; 84100; 84145; 84484; 85025; 85651; 86140; 86704; 86706; 86708; 86803; 87040; 87086; 87324; 87340; 93005; 96374; 96375; J1170; J1650; J2405; J3480; C9113; J2060; J3475; J7030; J7040

== ENCOUNTER 2017-10-13 19:31 | Inpatient (IN) | payer MEDICARE ==
[~2017-10-13] VITALS: Ht 162.6 cm; Wt 70.0 kg
[~2017-10-13 19:31] MED LIST changes: +ACET325T14 PO; -ACID1GRA2 PO; +ACID1GRA3 PO; +ADAL40PE2 IM; +DAPT500V6 IV; +FLUC200P18 IV; -HYDR-3138 PO; +HYDR-3237 PO; +LACT1CAP24 PO; +LEVO750P2 IV; +LORA-446 PO; +MAGN400T26 PO; +Maalox/Hyoscyamine/Lidocaine PO; +OMEP-110 PO; +ONDA4TAB13 PO; +OXYC5TAB3 PO; +PANT40TA3 PO; +POTA20TA6 PO; +SUCR1ORA5 PO; +SULF-169 PO; -SULF1TAB3 PO
[2017-10-13] MEDS ORDERED: SODIUM CHLORIDE 0.9% 1,000ML IVBOLUS ONE ×2 (20:00→22:00)
[2017-10-13] MEDS ORDERED: SODIUM CHLORIDE FLUSH 10ML SYR IVF ONE (20:00)
[2017-10-13] MEDS ORDERED: ACETAMINOPHEN 325 MG TABLET PO ONE (20:00)
[2017-10-13] MEDS ORDERED: ONDANSETRON 2MG/ML, 2ML IVPush ONE ×2 (20:00→21:30)
[2017-10-13 20:34] LABS: MEAN CORPUSCULAR HEMOGLOBIN 28.7 pg (27.5-34.5); MEAN CORPUSCULAR HGB CONC 33.1 g/dL (33.2-36.2); MEAN CORPUSCULAR VOLUME 86.9 fL (81-97); MEAN PLATELET VOLUME 7.7 fL (7.4-10.4); PLATELET COUNT 463 x10^3/uL (130-400); RED BLOOD COUNT 4.53 x10^6/uL (4.38-5.82); RED CELL DISTRIBUTION WIDTH 15.2 % (9.4-14.8)
[2017-10-13 20:38] LABS: MD YES
[2017-10-13 20:42] LABS: ALANINE AMINOTRANSFERASE 30 U/L (12-78); ALBUMIN 4.1 g/dL (3.4-5.0); ANION GAP 13 mmol/L (5-15); CALCIUM 9.8 mg/dL (8.5-10.1); CHLORIDE 103 mmol/L (98-107); CREATININE 2.71 mg/dL (0.7-1.3)
[2017-10-13 20:44] LABS: ALKALINE PHOSPHATASE 220 U/L (45-117); BILIRUBIN,TOTAL 0.4 mg/dL (0.2-1.0); TOTAL PROTEIN 9.7 g/dL (6.4-8.2)
[2017-10-13 20:53] LABS: <PLATELET ESTIMATE> INCREASED; <RBC MORPHOLOGY> NORMAL; BASOS#(MANUAL) 0.33 x10^3/uL (0-0.1); BASOS% (MANUAL) 1 % (0-1); LYMPH#(MANUAL) 0.66 x10^3/uL (1-3.4); LYMPHS% (MANUAL) 2 % (22-44); MONOS#(MANUAL) 0.99 x10^3/uL (0.3-2.7); MONOS% (MANUAL) 3 % (2-9); SEG#(MANUAL) 30.93 x10^3/uL (1.8-6.8); SEGS% (MANUAL) 94 % (42-75)
[2017-10-13 20:54] LABS: <PLT MORPHOLOGY> NORMAL PLT MORPH
[2017-10-13] MEDS ORDERED: ONDANSETRON 2MG/ML, 2ML ONE (21:19)
[2017-10-13] MEDS ORDERED: morphine SULFATE 10 MG/ML, 1ML IVPush ONE (21:30)
[2017-10-13 21:32] LABS: MICROSCOPIC INDICATED
[2017-10-13] MEDS ORDERED: MORPHINE SULFATE 4 MG/ML, 1ML ONE (21:38)
[2017-10-13] MEDS ORDERED: METRONIDAZOLE PMX 500MG/100ML 100 ML ONE (21:45)
[2017-10-13 21:52] LABS: CULTURE INDICATED? NO
[2017-10-13 22:00] LABS: CLOSTRIDIUM DIFFICILE ANTIGEN NEGATIVE; CLOSTRIDIUM DIFFICILE TOXIN NEGATIVE (Negative)
[2017-10-13] MEDS ORDERED: METRONIDAZOLE PMX 500MG/100ML 100 ML IV ONE (22:00)
[2017-10-13] MEDS ORDERED: ACETAMINOPHEN 325 MG TABLET PO PRN (23:00)
[2017-10-13] MEDS ORDERED: ADALIMUMAB 40 MG/0.8 ML HOMEINJ SCH (23:00)
[2017-10-13] MEDS ORDERED: VANCOMYCIN PER PHARMACY MC PRN (23:00)
[2017-10-13] MEDS ORDERED: ONDANSETRON 2MG/ML, 2ML IVPush PRN (23:00)
[2017-10-14 00:14] VITALS: BP 99/60
[2017-10-14] MEDS ORDERED: PHARMACOKINETIC MONITORING MC PRN (00:30)
[2017-10-14] MEDS: PIPERACILLIN/TAZO/PMX 3.375GM 50 ML IV SCH ×6 (01:25→23:54)
[2017-10-14 01:54] VITALS: BP 125/70
[2017-10-14] MEDS ORDERED: HYDROcodone/APAP 5/325 TABLET PO ONE (02:00)
[2017-10-14 02:22] LABS: RAPID INFLUENZA A Negative (Negative); RAPID INFLUENZA B Negative (Negative)
[2017-10-14] MEDS: NS + 20MEQ KCL 1,000 ML IV SCH ×4 (02:51→23:47)
[2017-10-14] MEDS: HEPARIN 5,000 UNITS/ML, 1ML SQ SCH ×3 (02:53→21:48)
[2017-10-14] MEDS ORDERED: VANCOMYCIN 1,400 MG in SODIUM CHLORIDE 0.9% 250 ML IV ONE (04:00)
[2017-10-14 05:18] LABS: MEAN CORPUSCULAR HEMOGLOBIN 28.6 pg (27.5-34.5); MEAN CORPUSCULAR HGB CONC 33.2 g/dL (33.2-36.2); MEAN CORPUSCULAR VOLUME 86.2 fL (81-97); MEAN PLATELET VOLUME 7.6 fL (7.4-10.4); PLATELET COUNT 368 x10^3/uL (130-400); RED CELL DISTRIBUTION WIDTH 15.1 % (9.4-14.8)
[2017-10-14 05:31] LABS: ALBUMIN 3.2 g/dL (3.4-5.0); ANION GAP 8 mmol/L (5-15); CALCIUM 8.3 mg/dL (8.5-10.1); CHLORIDE 104 mmol/L (98-107)
[2017-10-14 05:36] LABS: ALANINE AMINOTRANSFERASE 21 U/L (12-78); ALKALINE PHOSPHATASE 150 U/L (45-117); BILIRUBIN,TOTAL 0.5 mg/dL (0.2-1.0); CREATININE 2.36 mg/dL (0.7-1.3); TOTAL PROTEIN 7.6 g/dL (6.4-8.2)
[2017-10-14 05:51] LABS: MD YES
[2017-10-14 05:52] LABS: EOS#(MANUAL) 0.28 x10^3/uL (0.0-0.4); EOS% (MANUAL) 1 % (1-7); MONOS#(MANUAL) 1.38 x10^3/uL (0.3-2.7); MONOS% (MANUAL) 5 % (2-9)
[2017-10-14 05:53] LABS: ANISOCYTOSIS 1+; LYMPH#(MANUAL) 1.65 x10^3/uL (1-3.4); LYMPHS% (MANUAL) 6 % (22-44); SEGS% (MANUAL) 88 % (42-75)
[2017-10-14 05:54] LABS: POLYCHROMASIA 1+
[2017-10-14 05:55] LABS: <PLATELET ESTIMATE> INCREASED; <PLT MORPHOLOGY> NORMAL PLT MORPH
[2017-10-14] MEDS: CARVEDILOL 3.125 MG TABLET PO SCH ×2 (06:42→18:15)
[2017-10-14 09:35] VITALS: BP 98/51
[2017-10-14] MEDS: PANTOPROZOLE 40MG TABLET PO SCH (09:38)
[2017-10-14] MEDS: SERTRALINE 100MG TABLET PO SCH (09:38)
[2017-10-14] MEDS: HYDROcodone/APAP 5/325 TABLET PO PRN ×3 (10:40→21:48)
[2017-10-14 15:33] VITALS: BP 116/62
[2017-10-14 19:20] VITALS: BP 107/63
[2017-10-14] MEDS: LORazepam 1MG TABLET PO PRN (23:54)
[2017-10-15 01:17] VITALS: BP 109/60
[2017-10-15] MEDS: HEPARIN 5,000 UNITS/ML, 1ML SQ SCH ×3 (04:15→21:08)
[2017-10-15] MEDS: HYDROcodone/APAP 5/325 TABLET PO PRN ×5 (04:21→21:09)
[2017-10-15] MEDS: CARVEDILOL 3.125 MG TABLET PO SCH ×2 (06:07→17:37)
[2017-10-15] MEDS: PIPERACILLIN/TAZO/PMX 3.375GM 50 ML IV SCH ×3 (06:07→18:10)
[2017-10-15] MEDS ORDERED: VANCOMYCIN 1,400 MG in SODIUM CHLORIDE 0.9% 250 ML IV ONE (06:30)
[2017-10-15 07:35] LABS: BASOPHILS # (AUTO) 0.03 x10^3/uL (0-0.1); BASOPHILS % (AUTO) 0 % (0-1); EOSINOPHILS # (AUTO) 0.26 x10^3/uL (0-0.4); EOSINOPHILS % (AUTO) 2 % (1-7); LYMPHOCYTES # (AUTO) 1.01 x10^3/uL (1-3.4); LYMPHOCYTES % (AUTO) 7 % (22-44); MD NO; MEAN CORPUSCULAR HEMOGLOBIN 28.7 pg (27.5-34.5); MEAN CORPUSCULAR HGB CONC 32.9 g/dL (33.2-36.2); MEAN CORPUSCULAR VOLUME 87.3 fL (81-97); MEAN PLATELET VOLUME 7.6 fL (7.4-10.4); MONOCYTES # (AUTO) 1.36 x10^3/uL (0.2-0.8); MONOCYTES % (AUTO) 10 % (2-9); NEUTROPHILS # (AUTO) 11.37 x10^3/uL (1.8-6.8); NEUTROPHILS % (AUTO) 81 % (42-75); PLATELET COUNT 338 x10^3/uL (130-400); RED BLOOD COUNT 3.54 x10^6/uL (4.38-5.82); RED CELL DISTRIBUTION WIDTH 14.8 % (9.4-14.8)
[2017-10-15 07:37] LABS: ANION GAP 9 mmol/L (5-15); CALCIUM 8.5 mg/dL (8.5-10.1); CHLORIDE 107 mmol/L (98-107)
[2017-10-15] MEDS: LACTOBACILLUS 1GM/ PACKET PO SCH ×3 (08:45→21:00)
[2017-10-15] MEDS: SERTRALINE 100MG TABLET PO SCH (08:45)
[2017-10-15] MEDS: PANTOPROZOLE 40MG TABLET PO SCH (08:45)
[2017-10-15 08:59] VITALS: BP 135/50
[2017-10-15] MEDS: NS + 20MEQ KCL 1,000 ML IV SCH ×2 (11:33→21:55)
[2017-10-15 15:49] VITALS: BP 113/62
[2017-10-15] MEDS ORDERED: MAGNESIUM SULFATE PMX 4GM/100M 100 ML IV ONE (17:30)
[2017-10-15 19:02] VITALS: BP 127/69
[2017-10-15] MEDS: LORazepam 1MG TABLET PO PRN (21:08)
[2017-10-16] MEDS: PIPERACILLIN/TAZO/PMX 3.375GM 50 ML IV SCH ×4 (01:27→21:14)
[2017-10-16 01:43] VITALS: BP 126/65
[2017-10-16] MEDS: HYDROcodone/APAP 5/325 TABLET PO PRN ×5 (02:23→21:13)
[2017-10-16] MEDS: HEPARIN 5,000 UNITS/ML, 1ML SQ SCH ×2 (05:30→16:18)
[2017-10-16 05:32] VITALS: BP 104/58
[2017-10-16] MEDS: CARVEDILOL 3.125 MG TABLET PO SCH ×2 (05:43→17:06)
[2017-10-16] MEDS: SERTRALINE 100MG TABLET PO SCH (08:16)
[2017-10-16] MEDS: LACTOBACILLUS 1GM/ PACKET PO SCH ×3 (08:16→21:14)
[2017-10-16] MEDS: PANTOPROZOLE 40MG TABLET PO SCH (08:16)
[2017-10-16 08:36] VITALS: BP 105/60
[2017-10-16 09:54] LABS: BASOPHILS # (AUTO) 0.02 x10^3/uL (0-0.1); BASOPHILS % (AUTO) 0 % (0-1); EOSINOPHILS # (AUTO) 0.23 x10^3/uL (0-0.4); EOSINOPHILS % (AUTO) 3 % (1-7); LYMPHOCYTES # (AUTO) 0.94 x10^3/uL (1-3.4); LYMPHOCYTES % (AUTO) 10 % (22-44); MD NO; MEAN CORPUSCULAR HEMOGLOBIN 28.5 pg (27.5-34.5); MEAN CORPUSCULAR VOLUME 86.4 fL (81-97); MEAN PLATELET VOLUME 7.1 fL (7.4-10.4); MONOCYTES # (AUTO) 0.77 x10^3/uL (0.2-0.8); MONOCYTES % (AUTO) 9 % (2-9); NEUTROPHILS # (AUTO) 7.09 x10^3/uL (1.8-6.8); NEUTROPHILS % (AUTO) 78 % (42-75); PLATELET COUNT 347 x10^3/uL (130-400); RED BLOOD COUNT 3.39 x10^6/uL (4.38-5.82); RED CELL DISTRIBUTION WIDTH 15.8 % (9.4-14.8)
[2017-10-16 10:04] LABS: ALANINE AMINOTRANSFERASE 14 U/L (12-78); ALBUMIN 2.8 g/dL (3.4-5.0); ANION GAP 7 mmol/L (5-15); CALCIUM 8.4 mg/dL (8.5-10.1); CHLORIDE 110 mmol/L (98-107); CREATININE 1.63 mg/dL (0.7-1.3)
[2017-10-16 10:06] LABS: ALKALINE PHOSPHATASE 102 U/L (45-117); BILIRUBIN,TOTAL 0.2 mg/dL (0.2-1.0)
[2017-10-16] MEDS: NS + 20MEQ KCL 1,000 ML IV SCH ×2 (10:26→21:14)
[2017-10-16] MEDS: CHOLESTYRAMINE LIGHT 4GM PACKET PO SCH ×2 (11:43→17:06)
[2017-10-16 14:30] VITALS: BP 106/57
[2017-10-16 19:03] VITALS: BP 119/66
[2017-10-16] MEDS: LORazepam 1MG TABLET PO PRN (21:14)
[2017-10-17] MEDS: HEPARIN 5,000 UNITS/ML, 1ML SQ SCH ×2 (00:51→09:13)
[2017-10-17 00:57] VITALS: BP 108/62
[2017-10-17] MEDS: HYDROcodone/APAP 5/325 TABLET PO PRN ×3 (01:52→09:50)
[2017-10-17] MEDS: PIPERACILLIN/TAZO/PMX 3.375GM 50 ML IV SCH (03:12)
[2017-10-17] MEDS: NS + 20MEQ KCL 1,000 ML IV SCH (05:37)
[2017-10-17 05:38] VITALS: BP 111/58
[2017-10-17] MEDS: CARVEDILOL 3.125 MG TABLET PO SCH (05:38)
[2017-10-17] MEDS ORDERED: VANCOMYCIN 1,400 MG in SODIUM CHLORIDE 0.9% 250 ML IV ONE (06:00)
[2017-10-17 06:56] LABS: BASOPHILS # (AUTO) 0.05 x10^3/uL (0-0.1); BASOPHILS % (AUTO) 1 % (0-1); EOSINOPHILS # (AUTO) 0.22 x10^3/uL (0-0.4); EOSINOPHILS % (AUTO) 3 % (1-7); LYMPHOCYTES # (AUTO) 1.16 x10^3/uL (1-3.4); LYMPHOCYTES % (AUTO) 14 % (22-44); MD NO; MEAN CORPUSCULAR HEMOGLOBIN 28.8 pg (27.5-34.5); MEAN CORPUSCULAR HGB CONC 33.1 g/dL (33.2-36.2); MEAN CORPUSCULAR VOLUME 86.8 fL (81-97); MEAN PLATELET VOLUME 7.2 fL (7.4-10.4); MONOCYTES # (AUTO) 0.67 x10^3/uL (0.2-0.8); MONOCYTES % (AUTO) 8 % (2-9); NEUTROPHILS # (AUTO) 6.41 x10^3/uL (1.8-6.8); NEUTROPHILS % (AUTO) 75 % (42-75); PLATELET COUNT 326 x10^3/uL (130-400); RED BLOOD COUNT 3.23 x10^6/uL (4.38-5.82); RED CELL DISTRIBUTION WIDTH 15.3 % (9.4-14.8)
[2017-10-17 07:08] LABS: ANION GAP 5 mmol/L (5-15); CALCIUM 7.9 mg/dL (8.5-10.1)
[2017-10-17 07:09] LABS: CREATININE 1.26 mg/dL (0.7-1.3)
[2017-10-17 07:17] LABS: CHLORIDE 115 mmol/L (98-107)
[2017-10-17 07:39] VITALS: BP 103/61
[2017-10-17] MEDS: CHOLESTYRAMINE LIGHT 4GM PACKET PO SCH (09:13)
[2017-10-17] MEDS: PANTOPROZOLE 40MG TABLET PO SCH (09:13)
[2017-10-17] MEDS: LACTOBACILLUS 1GM/ PACKET PO SCH (09:13)
[2017-10-17] MEDS: SERTRALINE 100MG TABLET PO SCH (09:14)
[2017-10-17] MEDS ORDERED: HYDR-3240 PO (11:47)
== END 2017-10-17 13:05 | disposition home or self-care (01) | DRG 871 ==
LOC: ED 22:41 → EDIP 22:45 → 4NOR 10-14 00:05
PROVIDERS: ADMIT Surgery; ATTEND Internal Medicine
DX: A41.9 Sepsis, unspecified organism (principal); N17.0 Acute kidney failure with tubular necrosis; E87.1 Hypo-osmolality and hyponatremia; E83.42 Hypomagnesemia; I07.1 Rheumatic tricuspid insufficiency; K50.90 Crohn's disease, unspecified, without complications; R65.20 Severe sepsis without septic shock; B95.7 Other staphylococcus as the cause of diseases classified elsewhere; D64.9 Anemia, unspecified; E86.0 Dehydration; E87.6 Hypokalemia; I10 Essential (primary) hypertension; J11.1 Influenza due to unidentified influenza virus with other respiratory manifestations; D47.3 Essential (hemorrhagic) thrombocythemia; F32.9 Major depressive disorder, single episode, unspecified; Z66 Do not resuscitate; Z87.891 Personal history of nicotine dependence; Z93.3 Colostomy status; Z90.49 Acquired absence of other specified parts of digestive tract; Z93.2 Ileostomy status
CPT/HCPCS: 36415; 74022; 74176; 80048; 80053; 80202; 81001; 83605; 83690; 83735; 84145; 85025; 87040; 87046; 87081; 87324; 87400; 87899; 89055; 93005; 96361; 96365; 96366; 96375; J1644; J2405; J2543; J3370; J3480; J2270; J3475; J7030; J7050

== ENCOUNTER 2018-01-27 14:51 | Inpatient (IN) | payer MEDICARE ==
[~2018-01-27] VITALS: Ht 162.6 cm; Wt 69.0 kg
[2018-01-27] MEDS ORDERED: ONDANSETRON 2MG/ML, 2ML IVPush ONE (15:30)
[2018-01-27] MEDS ORDERED: SODIUM CHLORIDE FLUSH 10ML SYR IVF ONE (15:30)
[2018-01-27 15:51] LABS: BASOPHILS # (AUTO) 0.04 x10^3/uL (0-0.1); BASOPHILS % (AUTO) 0 % (0-1); EOSINOPHILS # (AUTO) 0.41 x10^3/uL (0-0.4); EOSINOPHILS % (AUTO) 3 % (1-7); LYMPHOCYTES # (AUTO) 1.76 x10^3/uL (1-3.4); LYMPHOCYTES % (AUTO) 12 % (22-44); MD NO; MEAN CORPUSCULAR HEMOGLOBIN 26.5 pg (27.5-34.5); MEAN CORPUSCULAR VOLUME 80.2 fL (81-97); MEAN PLATELET VOLUME 7.9 fL (7.4-10.4); MONOCYTES # (AUTO) 0.98 x10^3/uL (0.2-0.8); MONOCYTES % (AUTO) 7 % (2-9); NEUTROPHILS # (AUTO) 11.19 x10^3/uL (1.8-6.8); NEUTROPHILS % (AUTO) 78 % (42-75); PLATELET COUNT 427 x10^3/uL (130-400); RED BLOOD COUNT 4.83 x10^6/uL (4.38-5.82); RED CELL DISTRIBUTION WIDTH 16.7 % (9.4-14.8)
[2018-01-27] MEDS ORDERED: morphine SULFATE 10 MG/ML, 1ML IVPush ONE (16:00)
[2018-01-27 16:05] LABS: ALANINE AMINOTRANSFERASE 31 U/L (12-78); ANION GAP 12 mmol/L (5-15); CALCIUM 8.5 mg/dL (8.5-10.1); CHLORIDE 108 mmol/L (98-107); CREATININE 1.49 mg/dL (0.7-1.3)
[2018-01-27 16:08] LABS: ALKALINE PHOSPHATASE 178 U/L (45-117); BILIRUBIN,TOTAL 0.5 mg/dL (0.2-1.0)
[2018-01-27] MEDS ORDERED: morphine SULFATE 10 MG/ML, 1ML ONE (16:09)
[2018-01-27] MEDS ORDERED: ONDANSETRON ODT 4 MG ONE (16:09)
[2018-01-27] MEDS ORDERED: ONDANSETRON ODT 4 MG PO ONE (16:30)
[2018-01-27] MEDS ORDERED: OMNIPAQUE 350 MG/ML, 100ML BOTTLE ONE (16:47)
[2018-01-27] MEDS ORDERED: MORPHINE SULFATE 4 MG/ML, 1ML ONE (16:57)
[2018-01-27] MEDS ORDERED: MORPHINE SULFATE 4 MG/ML, 1ML IVPush PRN (17:00)
[2018-01-27 18:22] LABS: MICROSCOPIC NOT IND
[2018-01-27 18:23] LABS: CULTURE INDICATED? NO
[2018-01-27 18:41] VITALS: BP 164/89
[2018-01-27] MEDS ORDERED: SODIUM CHLORIDE FLUSH 10ML SYR IVF PRN (19:00)
[2018-01-27] MEDS ORDERED: SODIUM CHLORIDE 0.9% 1,000 ML IV ONE (19:00)
[2018-01-27] MEDS ORDERED: KETOROLAC 30 MG/1 ML IM PRN (19:00)
[2018-01-27 19:55] VITALS: BP 147/74
[2018-01-27] MEDS: D5%-0.45% NACL 1,000 ML IV SCH (22:19)
[2018-01-27] MEDS: LORazepam 2 MG/ML, 1ML IVPush PRN (22:29)
[2018-01-28 00:34] VITALS: BP 132/69
[2018-01-28] MEDS: D5%-0.45% NACL 1,000 ML IV SCH ×3 (06:48→23:04)
[2018-01-28 07:24] VITALS: BP 120/68
[2018-01-28] MEDS: LORazepam 2 MG/ML, 1ML IVPush PRN ×3 (08:59→23:04)
[2018-01-28] MEDS ORDERED: HYDROcodone/APAP 5/325 TABLET PO PRN (12:00)
[2018-01-28 13:49] VITALS: BP 129/74
[2018-01-28 19:26] VITALS: BP 137/77
[2018-01-29 00:44] VITALS: BP 134/76
[2018-01-29 05:20] LABS: ANION GAP 9 mmol/L (5-15); CALCIUM 7.7 mg/dL (8.5-10.1); CHLORIDE 108 mmol/L (98-107); CREATININE 1.19 mg/dL (0.7-1.3)
[2018-01-29 05:23] LABS: BASOPHILS # (AUTO) 0.03 x10^3/uL (0-0.1); BASOPHILS % (AUTO) 0 % (0-1); EOSINOPHILS # (AUTO) 0.23 x10^3/uL (0-0.4); EOSINOPHILS % (AUTO) 2 % (1-7); LYMPHOCYTES % (AUTO) 9 % (22-44); MD NO; MEAN CORPUSCULAR HEMOGLOBIN 26.3 pg (27.5-34.5); MEAN CORPUSCULAR HGB CONC 32.9 g/dL (33.2-36.2); MEAN CORPUSCULAR VOLUME 79.8 fL (81-97); MEAN PLATELET VOLUME 8.1 fL (7.4-10.4); MONOCYTES # (AUTO) 1.07 x10^3/uL (0.2-0.8); MONOCYTES % (AUTO) 11 % (2-9); NEUTROPHILS % (AUTO) 78 % (42-75); PLATELET COUNT 295 x10^3/uL (130-400); RED BLOOD COUNT 4.29 x10^6/uL (4.38-5.82)
[2018-01-29] MEDS ORDERED: POTASSIUM CHLORIDE 20 MEQ TAB.ER.PRT PO ONE (07:30)
[2018-01-29 08:10] VITALS: BP 124/72
[2018-01-29] MEDS: D5%-0.45% NACL 1,000 ML IV SCH (08:13)
[2018-01-29] MEDS ORDERED: SERTRALINE 100MG TABLET PO SCH (09:00)
[2018-01-29] MEDS: LORazepam 2 MG/ML, 1ML IVPush PRN (12:36)
[2018-01-29 15:29] VITALS: BP 142/82
== END 2018-01-29 15:45 | disposition home or self-care (01) | DRG 388 ==
LOC: ED 17:12 → EDIP 17:45 → 4NOR 18:37
PROVIDERS: ADMIT Hospitalist; ATTEND Hospitalist
DX: K56.600 Partial intestinal obstruction, unspecified as to cause (principal); N17.0 Acute kidney failure with tubular necrosis; F33.1 Major depressive disorder, recurrent, moderate; K50.90 Crohn's disease, unspecified, without complications; Z88.8 Allergy status to other drugs, medicaments and biological substances; D63.8 Anemia in other chronic diseases classified elsewhere; D72.829 Elevated white blood cell count, unspecified; I07.1 Rheumatic tricuspid insufficiency; I10 Essential (primary) hypertension; I16.0 Hypertensive urgency; Z86.14 Personal history of Methicillin resistant Staphylococcus aureus infection; Z86.19 Personal history of other infectious and parasitic diseases; Z87.891 Personal history of nicotine dependence; Z93.3 Colostomy status
CPT/HCPCS: 36415; 74022; 74177; 80048; 80053; 81003; 83690; 85025; 96374; 96376; Q0162; Q9967; J2060; J2270

== ENCOUNTER 2018-02-03 23:27 | Inpatient (IN) | payer MEDICARE ==
[~2018-02-03] VITALS: Ht 162.6 cm; Wt 71.8 kg
[2018-02-04 00:20] LABS: BASOPHILS # (AUTO) 0.05 x10^3/uL (0-0.1); BASOPHILS % (AUTO) 0 % (0-1); EOSINOPHILS # (AUTO) 0.62 x10^3/uL (0-0.4); EOSINOPHILS % (AUTO) 6 % (1-7); LYMPHOCYTES # (AUTO) 1.55 x10^3/uL (1-3.4); LYMPHOCYTES % (AUTO) 15 % (22-44); MD NO; MEAN CORPUSCULAR HEMOGLOBIN 26.5 pg (27.5-34.5); MEAN CORPUSCULAR HGB CONC 33.2 g/dL (33.2-36.2); MEAN CORPUSCULAR VOLUME 79.8 fL (81-97); MEAN PLATELET VOLUME 7.8 fL (7.4-10.4); MONOCYTES # (AUTO) 1.04 x10^3/uL (0.2-0.8); MONOCYTES % (AUTO) 10 % (2-9); NEUTROPHILS # (AUTO) 7.44 x10^3/uL (1.8-6.8); NEUTROPHILS % (AUTO) 70 % (42-75); PLATELET COUNT 389 x10^3/uL (130-400); RED BLOOD COUNT 4.98 x10^6/uL (4.38-5.82); RED CELL DISTRIBUTION WIDTH 17.6 % (9.4-14.8)
[2018-02-04 00:27] LABS: ANION GAP 13 mmol/L (5-15); CALCIUM 8.7 mg/dL (8.5-10.1); CHLORIDE 102 mmol/L (98-107); CREATININE 1.73 mg/dL (0.7-1.3)
[2018-02-04] MEDS ORDERED: LIDOCAINE GEL 2%, 5ML ONE (01:02)
[2018-02-04] MEDS ORDERED: morphine SULFATE 10 MG/ML, 1ML IVPush ONE (02:00)
[2018-02-04] MEDS ORDERED: SODIUM CHLORIDE 0.9%, 500ML IVBOLUS ONE (02:00)
[2018-02-04] MEDS ORDERED: TAMSULOSIN 0.4 MG CAP.ER.24H PO ONE (02:00)
[2018-02-04] MEDS ORDERED: MORPHINE SULFATE 4 MG/ML, 1ML ONE (02:01)
[2018-02-04] MEDS ORDERED: TAMSULOSIN 0.4 MG CAP.ER.24H ONE (02:18)
[2018-02-04 02:20] LABS: MICROSCOPIC NOT IND
[2018-02-04 02:25] LABS: CULTURE INDICATED? NO
[2018-02-04 02:55] VITALS: BP 145/82
[2018-02-04] MEDS ORDERED: ONDANSETRON 2MG/ML, 2ML IVPush PRN (05:00)
[2018-02-04] MEDS ORDERED: POTASSIUM CHLORIDE 20 MEQ TAB.ER.PRT PO ONE (05:00)
[2018-02-04] MEDS ORDERED: ONDANSETRON ODT 4 MG PO PRN (05:00)
[2018-02-04] MEDS ORDERED: hydrALAzine 20 MG/ML, 1ML IVPush PRN (05:00)
[2018-02-04 05:35] LABS: % IRON SATURATION 9 % (20-55); IRON LEVEL 39 mcg/dL (65-175); TOTAL IRON BINDING CAPACITY 447 mcg/dL (250-450)
[2018-02-04] MEDS: CARVEDILOL 3.125 MG TABLET PO SCH ×2 (05:46→18:43)
[2018-02-04] MEDS: ACETAMINOPHEN 325 MG TABLET PO PRN ×3 (05:46→19:51)
[2018-02-04 06:34] VITALS: BP 139/73
[2018-02-04] MEDS: NS + 20MEQ KCL 1,000 ML IV SCH ×2 (07:12→18:00)
[2018-02-04] MEDS ORDERED: ENOXAPARIN 30 MG/0.3 ML SQ SCH (09:00)
[2018-02-04] MEDS: SERTRALINE 100MG TABLET PO SCH (09:45)
[2018-02-04] MEDS: ENOXAPARIN 40 MG/0.4 ML SQ SCH (09:45)
[2018-02-04] MEDS: PANTOPROZOLE 40MG TABLET PO SCH (09:45)
[2018-02-04] MEDS: TAMSULOSIN 0.4 MG CAP.ER.24H PO SCH (09:46)
[2018-02-04] MEDS: morphine SULFATE 10 MG/ML, 1ML IVPush PRN ×5 (10:03→22:24)
[2018-02-04 12:01] VITALS: BP 128/79
[2018-02-04] MEDS: IRON SUCROSE COMPLEX 100MG/5ML IV SCH (12:03)
[2018-02-04 19:47] VITALS: BP 142/78
[2018-02-05 00:53] VITALS: BP 131/74
[2018-02-05] MEDS: morphine SULFATE 10 MG/ML, 1ML IVPush PRN ×6 (01:15→20:41)
[2018-02-05] MEDS: ACETAMINOPHEN 325 MG TABLET PO PRN ×3 (01:15→12:39)
[2018-02-05] MEDS: NS + 20MEQ KCL 1,000 ML IV SCH ×2 (02:24→16:55)
[2018-02-05 05:32] LABS: ALANINE AMINOTRANSFERASE 36 U/L (12-78); ALBUMIN 2.9 g/dL (3.4-5.0); ANION GAP 7 mmol/L (5-15); CALCIUM 7.6 mg/dL (8.5-10.1); CHLORIDE 115 mmol/L (98-107); CREATININE 1.18 mg/dL (0.7-1.3)
[2018-02-05 05:34] LABS: ALKALINE PHOSPHATASE 163 U/L (45-117); BILIRUBIN,TOTAL 0.3 mg/dL (0.2-1.0); TOTAL PROTEIN 6.5 g/dL (6.4-8.2)
[2018-02-05 05:37] LABS: BASOPHILS # (AUTO) 0.04 x10^3/uL (0-0.1); BASOPHILS % (AUTO) 0 % (0-1); EOSINOPHILS # (AUTO) 0.64 x10^3/uL (0-0.4); EOSINOPHILS % (AUTO) 7 % (1-7); LYMPHOCYTES # (AUTO) 1.35 x10^3/uL (1-3.4); LYMPHOCYTES % (AUTO) 15 % (22-44); MD NO; MEAN CORPUSCULAR HEMOGLOBIN 26.4 pg (27.5-34.5); MEAN CORPUSCULAR HGB CONC 32.9 g/dL (33.2-36.2); MEAN CORPUSCULAR VOLUME 80.3 fL (81-97); MEAN PLATELET VOLUME 7.9 fL (7.4-10.4); MONOCYTES # (AUTO) 0.78 x10^3/uL (0.2-0.8); MONOCYTES % (AUTO) 8 % (2-9); NEUTROPHILS % (AUTO) 70 % (42-75); PLATELET COUNT 271 x10^3/uL (130-400); RED BLOOD COUNT 3.88 x10^6/uL (4.38-5.82); RED CELL DISTRIBUTION WIDTH 18.1 % (9.4-14.8)
[2018-02-05 06:12] VITALS: BP 122/70
[2018-02-05] MEDS: CARVEDILOL 3.125 MG TABLET PO SCH ×2 (06:14→19:03)
[2018-02-05 07:15] VITALS: BP 118/71
[2018-02-05] MEDS: IRON SUCROSE COMPLEX 100MG/5ML IV SCH (09:21)
[2018-02-05] MEDS: TAMSULOSIN 0.4 MG CAP.ER.24H PO SCH (09:21)
[2018-02-05] MEDS: SERTRALINE 100MG TABLET PO SCH (09:21)
[2018-02-05] MEDS: PANTOPROZOLE 40MG TABLET PO SCH (09:21)
[2018-02-05] MEDS: ENOXAPARIN 40 MG/0.4 ML SQ SCH (12:25)
[2018-02-05 13:53] VITALS: BP 144/74
[2018-02-05] MEDS: LACTATED RINGERS 1,000 ML IV SCH (19:03)
[2018-02-05 19:21] VITALS: BP 157/75
[2018-02-06] MEDS: morphine SULFATE 10 MG/ML, 1ML IVPush PRN ×4 (00:53→09:08)
[2018-02-06] MEDS: ACETAMINOPHEN 325 MG TABLET PO PRN ×2 (00:57→09:08)
[2018-02-06 01:56] VITALS: BP 126/78
[2018-02-06] MEDS: LACTATED RINGERS 1,000 ML IV SCH ×2 (02:57→10:30)
[2018-02-06 05:24] LABS: BASOPHILS # (AUTO) 0.03 x10^3/uL (0-0.1); BASOPHILS % (AUTO) 0 % (0-1); EOSINOPHILS # (AUTO) 0.54 x10^3/uL (0-0.4); EOSINOPHILS % (AUTO) 6 % (1-7); LYMPHOCYTES # (AUTO) 1.22 x10^3/uL (1-3.4); LYMPHOCYTES % (AUTO) 13 % (22-44); MD NO; MEAN CORPUSCULAR HEMOGLOBIN 26.4 pg (27.5-34.5); MEAN CORPUSCULAR HGB CONC 32.5 g/dL (33.2-36.2); MEAN CORPUSCULAR VOLUME 81.3 fL (81-97); MEAN PLATELET VOLUME 8.1 fL (7.4-10.4); MONOCYTES # (AUTO) 0.67 x10^3/uL (0.2-0.8); MONOCYTES % (AUTO) 7 % (2-9); NEUTROPHILS # (AUTO) 7.05 x10^3/uL (1.8-6.8); NEUTROPHILS % (AUTO) 74 % (42-75); PLATELET COUNT 288 x10^3/uL (130-400); RED BLOOD COUNT 3.78 x10^6/uL (4.38-5.82); RED CELL DISTRIBUTION WIDTH 17.8 % (9.4-14.8)
[2018-02-06 05:35] LABS: CHLORIDE 110 mmol/L (98-107)
[2018-02-06 05:44] LABS: ALANINE AMINOTRANSFERASE 32 U/L (12-78); ALBUMIN 2.9 g/dL (3.4-5.0); ALKALINE PHOSPHATASE 139 U/L (45-117); ANION GAP 8 mmol/L (5-15); BILIRUBIN,TOTAL 0.2 mg/dL (0.2-1.0); CALCIUM 7.8 mg/dL (8.5-10.1); CREATININE 1.06 mg/dL (0.7-1.3); TOTAL PROTEIN 6.2 g/dL (6.4-8.2)
[2018-02-06] MEDS: CARVEDILOL 3.125 MG TABLET PO SCH (06:01)
[2018-02-06 08:10] VITALS: BP 135/78
[2018-02-06] MEDS: PANTOPROZOLE 40MG TABLET PO SCH (09:08)
[2018-02-06] MEDS: SERTRALINE 100MG TABLET PO SCH (09:08)
[2018-02-06] MEDS: IRON SUCROSE COMPLEX 100MG/5ML IV SCH (09:08)
[2018-02-06] MEDS: TAMSULOSIN 0.4 MG CAP.ER.24H PO SCH (09:09)
[2018-02-06] MEDS: ENOXAPARIN 40 MG/0.4 ML SQ SCH (12:00)
[2018-02-06 12:39] VITALS: BP 133/77
[2018-02-06] MEDS ORDERED: TAMS-11 PO (16:08)
== END 2018-02-06 18:05 | disposition home or self-care (01) | DRG 682 ==
LOC: ED 02-04 00:02 → EDIP 02-04 01:55 → 4NOR 02-04 02:45
PROVIDERS: ADMIT Hospitalist; ATTEND Hospitalist
PROC: 0T9B70Z Drainage of Bladder with Drainage Device, Via Natural or Artificial Opening (ICD-10-PCS; principal; 2018-02-04)
DX: N17.9 Acute kidney failure, unspecified (principal); E43 Unspecified severe protein-calorie malnutrition; E87.2 Acidosis; N13.8 Other obstructive and reflux uropathy; E87.1 Hypo-osmolality and hyponatremia; K50.90 Crohn's disease, unspecified, without complications; D50.9 Iron deficiency anemia, unspecified; E87.6 Hypokalemia; I10 Essential (primary) hypertension; R33.8 Other retention of urine; N40.1 Benign prostatic hyperplasia with lower urinary tract symptoms; Z87.891 Personal history of nicotine dependence; Z93.3 Colostomy status; Z90.49 Acquired absence of other specified parts of digestive tract; Z90.89 Acquired absence of other organs; Z88.8 Allergy status to other drugs, medicaments and biological substances
CPT/HCPCS: 36415; 74176; 76700; 80048; 80053; 81003; 82728; 83540; 83550; 83735; 84100; 85025; 87081; 96361; 96374; J1650; J1756; J3480; J2270; J7040; J7120

== ENCOUNTER 2019-12-08 04:30 | Emergency (ER) | payer MEDICARE, MEDICAID ==
[~2019-12-08] VITALS: Ht 162.6 cm; Wt 84.9 kg
[~2019-12-08 04:30] MED LIST changes: -AMLO1CAP12 PO; +AMLO1CAP13 PO; -FLUC200P18 IV; +FLUC200P6 IV; -ONDA4VIA4 IVPush; +ONDA4VIA60 IVPush; -PROM12.55 PO; +PROM12.57 PO; +TAMS-11 PO
[2019-12-08 04:49] VITALS: BP 167/93
--- NOTE | 2019-12-08 04:50 | NUR ---
THIS IS A 54Y M THAT COMES IN FOR URINARY RETENTION SINCE 1999. PT STS HE WAS ABLE TO VOID PRIOR TO GOING TO BED HOWEVER WHEN HE AWOKE AT 0130 HE WAS UNABLE TO VOID. PT CONNECTED TO MONITORING. VSS.
--- NOTE | 2019-12-08 04:50 | NUR ---
pa at bedside to assess pt
--- NOTE | 2019-12-08 05:09 | NUR ---
pt bladder scanned 770ml
--- NOTE | 2019-12-08 05:30 | NUR ---
DURANT INSERTED BY MALE TASK RN JOSEFINA AT PT REQUEST.
--- NOTE | 2019-12-08 05:31 | NUR ---
URINE WALKED TO LAB
[2019-12-08 05:41] LABS: MEAN CORPUSCULAR HGB CONC 34.4 g/dL (33.2-36.2); MEAN PLATELET VOLUME 7.4 fL (7.4-10.4); PLATELET COUNT 391 x10^3/uL (130-400); RED BLOOD COUNT 4.44 x10^6/uL (4.38-5.82); RED CELL DISTRIBUTION WIDTH 13.1 % (9.4-14.8)
[2019-12-08 05:51] LABS: ALANINE AMINOTRANSFERASE 30 U/L (12-78); ALBUMIN 3.6 g/dL (3.4-5.0); ANION GAP 9 mmol/L (5-15); CALCIUM 9.1 mg/dL (8.5-10.1); CHLORIDE 102 mmol/L (98-107); CREATININE 1.26 mg/dL (0.7-1.3)
[2019-12-08 05:54] LABS: ALKALINE PHOSPHATASE 88 U/L (45-117); BILIRUBIN,TOTAL 0.5 mg/dL (0.2-1.0)
[2019-12-08 05:55] LABS: MICROSCOPIC INDICATED
[2019-12-08 06:02] LABS: CULTURE INDICATED? NO
[2019-12-08 06:23] LABS: BASOPHILS # (AUTO) 0.03 x10^3/uL (0-0.1); BASOPHILS % (AUTO) 0 % (0-1); EOSINOPHILS # (AUTO) 0.23 x10^3/uL (0-0.4); EOSINOPHILS % (AUTO) 2 % (1-7); LYMPHOCYTES # (AUTO) 1.02 x10^3/uL (1-3.4); LYMPHOCYTES % (AUTO) 8 % (22-44); MD SCAN; MONOCYTES # (AUTO) 1.02 x10^3/uL (0.2-0.8); MONOCYTES % (AUTO) 7 % (2-9); NEUTROPHILS # (AUTO) 11.44 x10^3/uL (1.8-6.8); NEUTROPHILS % (AUTO) 83 % (42-75)
[2019-12-08] MEDS ORDERED: POTASSIUM CHLORIDE 10% 40 MEQ/30 ML UDC PO ONE (06:30)
--- NOTE | 2019-12-08 06:52 | NUR ---
Patient/Caregiver given discharge instructions and they have confirmed that they understand the instructions. Patient ambulatory with steady gait.
== END 2019-12-08 06:53 | disposition home or self-care (01) ==
LOC: ED 05:42
DX: R33.9 Retention of urine, unspecified (principal); E87.6 Hypokalemia; K21.9 Gastro-esophageal reflux disease without esophagitis; I10 Essential (primary) hypertension; Z90.49 Acquired absence of other specified parts of digestive tract
CPT/HCPCS: 36415; 51702; 80053; 81001; 85025; 99284

== ENCOUNTER 2019-12-08 17:24 | Emergency (ER) | payer MEDICARE, MEDICAID ==
[~2019-12-08] VITALS: Ht 162.6 cm; Wt 84.0 kg
--- NOTE | 2019-12-08 20:24 | NUR ---
CALLED FOR ROOM, NO ANSWER
--- NOTE | 2019-12-08 20:44 | NUR ---
pt ambulate to room from lobby at this time
--- NOTE | 2019-12-08 21:47 | NUR ---
PT C/O PENILE PAIN AND STATES WHEN HE STANDS URINE LEAKS AROUND CATHETER. PT EDUCATED ON CATH CARE. CATH FLUSHED AND BALLOON CHECKED. ALL FUNCTIONING PROPERLY. PT WISHES TO KEEP CURRENT CATH AND RETURN IF ANY COMPLICATIONS SHOULD ARISE.
[2019-12-08 21:56] VITALS: BP 147/78
== END 2019-12-08 22:42 | disposition home or self-care (01) ==
LOC: ED 21:30
DX: Z46.6 Encounter for fitting and adjustment of urinary device (principal); I10 Essential (primary) hypertension; K50.90 Crohn's disease, unspecified, without complications; Z90.89 Acquired absence of other organs; Z90.49 Acquired absence of other specified parts of digestive tract; Z87.891 Personal history of nicotine dependence
CPT/HCPCS: 99281

== ENCOUNTER 2020-12-25 01:14 | Observation (INO) | payer MEDICARE, MEDICAID ==
[~2020-12-25] VITALS: Ht 162.6 cm; Wt 71.2 kg
[~2020-12-25 01:14] MED LIST changes: +HYDR-1067 PO; -HYDR-3240 PO; -OXYC-302 PO; +OXYC1TAB14 PO; -OXYC5TAB3 PO; +OXYC5TAB98 PO
[2020-12-25] MEDS ORDERED: ONDANSETRON 2MG/ML, 2ML ONE (01:18)
[2020-12-25] MEDS ORDERED: ONDANSETRON 2MG/ML, 2ML IVPush ONE (01:30)
[2020-12-25] MEDS ORDERED: SODIUM CHLORIDE FLUSH 10ML SYR IVF ONE (01:30)
[2020-12-25] MEDS ORDERED: SODIUM CHLORIDE 0.9% 1,000ML IVBOLUS ONE (01:30)
--- NOTE | 2020-12-25 01:38 | NUR ---
Pt BIBA after having ground level fall at home. Pt states he woke up, noticed his tongue was swelling, went to the Bathroom, and then woke up with his family standing over him. Pt states feeling achy and fatigued lately. Pt A&O, on monitor. Pt with non-labored breathing, denies CP. Pt denies LEWIS, pt with no neuro defecits. Pt states he feels fatigued and achy. EMS started an IV, NS infusing. Stool sample sent from colostomy. Will monitor.
[2020-12-25 01:53] LABS: BASOPHILS % (AUTO) 0 % (0-1); EOSINOPHILS % (AUTO) 3 % (1-7); LYMPHOCYTES % (AUTO) 10 % (22-44); MEAN CORPUSCULAR HGB CONC 34.3 g/dL (33.2-36.2); MEAN PLATELET VOLUME 7.3 fL (7.4-10.4); MONOCYTES % (AUTO) 13 % (2-9); NEUTROPHILS % (AUTO) 74 % (42-75); PLATELET COUNT 399 x10^3/uL (130-400); RED CELL DISTRIBUTION WIDTH 13.8 % (9.4-14.8)
[2020-12-25 01:57] LABS: MD NO
[2020-12-25 02:01] LABS: ALANINE AMINOTRANSFERASE 28 U/L (12-78); ALBUMIN 3.8 g/dL (3.4-5.0); ANION GAP 12 mmol/L (5-15); CALCIUM 8.5 mg/dL (8.5-10.1); CHLORIDE 100 mmol/L (98-107); CREATININE 2.67 mg/dL (0.7-1.3)
[2020-12-25 02:05] LABS: ALKALINE PHOSPHATASE 88 U/L (45-117); BILIRUBIN,TOTAL 0.4 mg/dL (0.2-1.0); TROPONIN I < 0.015 ng/mL (0.000-0.045)
--- NOTE | 2020-12-25 02:05 | NUR ---
Orthostatic VS Lying 126/67 HR 57 Sitting 115/61 HR 53 Standing 108/63 HR 62 Pt tolerated well, c/o slight lightheadedness.
[2020-12-25 02:21] LABS: CLOSTRIDIUM DIFFICILE ANTIGEN NEGATIVE; CLOSTRIDIUM DIFFICILE TOXIN NEGATIVE (Negative)
[2020-12-25] MEDS ORDERED: POTASSIUM CHLORIDE 20 MEQ TAB.ER.PRT PO ONE (02:30)
[2020-12-25] MEDS ORDERED: POTASSIUM CHLORIDE 20 MEQ TAB.ER.PRT ONE (02:44)
[2020-12-25] MEDS ORDERED: MAGNESIUM OXIDE 400 MG TABLET PO ONE (03:00)
[2020-12-25] MEDS ORDERED: MAGNESIUM OXIDE 400 MG TABLET ONE (03:16)
--- NOTE | 2020-12-25 03:23 | NUR ---
Pt medicated per order. Pt with no changes. Pt with stable VS. Will monitor.
--- NOTE | 2020-12-25 04:15 | NUR ---
HOSPITALIST AT BEDSIDE FOR ADMIT.
[2020-12-25] MEDS ORDERED: LACTATED RINGERS 1,000 ML IV SCH (04:30)
[2020-12-25] MEDS ORDERED: MAGNESIUM SULFATE PMX 2GM/50ML 50 ML IV ONE (04:30)
[2020-12-25] MEDS ORDERED: DIPHENHYDRAMINE 50 MG/ML, 1ML IVPush PRN (04:30)
[2020-12-25] MEDS ORDERED: POTASSIUM CHLORIDE 40 MEQ in SODIUM CHLORIDE 0.9% 500 ML IV ONE (04:30)
[2020-12-25] MEDS ORDERED: methylPREDNISolone SOD SUCC 40 MG/ML IVPush ONE (04:30)
[2020-12-25] MEDS ORDERED: ONDANSETRON 2MG/ML, 2ML IVPush PRN (04:30)
--- NOTE | 2020-12-25 04:40 | NUR ---
Report called to Karen, Pt to CT then to floor. Pt with no changes.
[2020-12-25 04:42] VITALS: BP 146/82
[2020-12-25] MEDS: ACETAMINOPHEN 325 MG TABLET PO PRN ×2 (05:13→20:18)
[2020-12-25] MEDS ORDERED: CARV25TA PO (06:10)
[2020-12-25] MEDS ORDERED: ESOM20SU PO (06:10)
[2020-12-25] MEDS ORDERED: DILT120T3 PO (06:10)
[2020-12-25 08:38] VITALS: BP 120/65
[2020-12-25] MEDS: POTASSIUM CHLORIDE 20 MEQ in LACTATED RINGERS 1,000 ML IV SCH ×2 (09:21→16:51)
[2020-12-25 14:48] VITALS: BP 114/54
[2020-12-25 18:56] LABS: CHLORIDE,URINE RANDOM 28 mmol/L; POTASSIUM,URINE RANDOM 43 mmol/L
[2020-12-25 19:06] LABS: SODIUM,URINE RANDOM < 5 mmol/L
[2020-12-25 20:25] VITALS: BP 129/64
[2020-12-26 01:07] VITALS: BP 118/68
[2020-12-26] MEDS: POTASSIUM CHLORIDE 20 MEQ in LACTATED RINGERS 1,000 ML IV SCH (01:52)
[2020-12-26 05:51] LABS: BASOPHILS % (AUTO) 0 % (0-1); EOSINOPHILS % (AUTO) 0 % (1-7); LYMPHOCYTES % (AUTO) 6 % (22-44); MEAN CORPUSCULAR HEMOGLOBIN 31.7 pg (27.5-34.5); MEAN CORPUSCULAR HGB CONC 33.5 g/dL (33.2-36.2); MEAN PLATELET VOLUME 7.2 fL (7.4-10.4); MONOCYTES % (AUTO) 7 % (2-9); NEUTROPHILS % (AUTO) 87 % (42-75); PLATELET COUNT 323 x10^3/uL (130-400); RED BLOOD COUNT 3.96 x10^6/uL (4.38-5.82); RED CELL DISTRIBUTION WIDTH 13.8 % (9.4-14.8)
[2020-12-26 05:57] LABS: CHLORIDE 110 mmol/L (98-107)
[2020-12-26 06:02] LABS: ANION GAP 6 mmol/L (5-15); CALCIUM 8.5 mg/dL (8.5-10.1); CHOL/HDL RATIO 3.5; CHOLESTEROL, TOTAL 142 mg/dL (140-239); CREATININE 1.46 mg/dL (0.7-1.3); HDL CHOL % 29 % (26-37); HDL CHOLESTEROL (DIRECT) 41 mg/dL (40-60); LDL CHOLESTEROL,CALCULATED 59 mg/dL (54-169); LDL/HDL RATIO 1.4 (0.5-3.0); TRIGLYCERIDES 210 mg/dL (50-200); VLDL CHOLESTEROL 42 mg/dL (0-25)
[2020-12-26 06:09] LABS: MD NO
[2020-12-26 07:46] VITALS: BP 126/57
[2020-12-26] MEDS ORDERED: CARVEDILOL 25 MG TABLET PO SCH (09:00)
[2020-12-26] MEDS ORDERED: K-PHOS NEUTRAL 250MG TAB PO SCH (09:00)
[2020-12-26] MEDS ORDERED: TAMSULOSIN 0.4 MG CAP.ER.24H PO SCH ×2 (09:00→21:00)
[2020-12-26] MEDS: ACETAMINOPHEN 325 MG TABLET PO PRN (10:17)
[2020-12-26 12:40] VITALS: BP 122/65
[2020-12-26] MEDS ORDERED: PHOS250T PO (15:16)
[2020-12-26] MEDS ORDERED: EPIN0.3P2 SQ (15:19)
[2021-01-17] MEDS ORDERED: NITR100C56 PO (08:30)
[2021-01-17] MEDS ORDERED: FINA5TAB4 PO (08:30)
== END 2020-12-26 16:40 | disposition home or self-care (01) ==
LOC: ED 01:44 → EDIP 03:41 → INTOOBSV 03:41 → 5SO 04:33 → DCLOUNGE 12-26 16:33
PROVIDERS: ADMIT Family Medicine; ATTEND Hospitalist
DX: R55 Syncope and collapse (principal); T78.3XXA Angioneurotic edema, initial encounter; N17.9 Acute kidney failure, unspecified; E87.6 Hypokalemia; R19.7 Diarrhea, unspecified; E83.42 Hypomagnesemia; R51.9 Headache, unspecified; R53.83 Other fatigue; M25.50 Pain in unspecified joint; K50.90 Crohn's disease, unspecified, without complications; N40.0 Benign prostatic hyperplasia without lower urinary tract symptoms; K21.9 Gastro-esophageal reflux disease without esophagitis; D84.9 Immunodeficiency, unspecified; R73.9 Hyperglycemia, unspecified; I10 Essential (primary) hypertension; I07.1 Rheumatic tricuspid insufficiency; Z93.2 Ileostomy status; Z87.891 Personal history of nicotine dependence; Z79.899 Other long term (current) drug therapy
CPT/HCPCS: 36415; 70450; 71045; 76770; 80048; 80053; 80061; 82436; 82550; 82570; 83036; 83735; 84100; 84133; 84145; 84300; 84443; 84484; 85025; 86160; 87324; 89055; 93005; 93306; 93356; 96361; 96365; 96366; 96368; 96375; 99285; G0378; J1200; J2405; J2920; J3475; J3480; J7030; J7040; J7120; 96374

== ENCOUNTER 2021-01-27 14:04 | Inpatient (IN) | payer MEDICARE, MEDICAID ==
[~2021-01-27] VITALS: Ht 162.6 cm; Wt 72.5 kg
[~2021-01-27 14:04] MED LIST changes: +CARV25TA PO; +DILT120T3 PO; +EPIN0.3P2 SQ; +ESOM20SU PO; +FINA5TAB4 PO; +NITR100C56 PO; +PHOS250T PO
[2021-01-27 15:29] LABS: ALBUMIN 4.3 g/dL (3.4-5.0); ANION GAP 11 mmol/L (5-15); CALCIUM 9.7 mg/dL (8.5-10.1); CHLORIDE 93 mmol/L (98-107)
[2021-01-27 15:32] LABS: MEAN CORPUSCULAR HEMOGLOBIN 30.8 pg (27.5-34.5); PLATELET COUNT 618 x10^3/uL (130-400); RED BLOOD COUNT 5.06 x10^6/uL (4.38-5.82); RED CELL DISTRIBUTION WIDTH 14.6 % (9.4-14.8)
[2021-01-27 15:34] LABS: ALANINE AMINOTRANSFERASE 30 U/L (12-78); ALKALINE PHOSPHATASE 121 U/L (45-117); BILIRUBIN,TOTAL 0.7 mg/dL (0.2-1.0); CREATININE 3.21 mg/dL (0.7-1.3); TOTAL PROTEIN 8.9 g/dL (6.4-8.2); TROPONIN I < 0.015 ng/mL (0.000-0.045)
[2021-01-27 16:11] LABS: MD YES
[2021-01-27 16:14] LABS: <PLATELET ESTIMATE> INCREASED; <PLT MORPHOLOGY> NORMAL PLT MORPH; <RBC MORPHOLOGY> NORMAL; EOS#(MANUAL) 0.35 x10^3/uL (0.0-0.4); EOS% (MANUAL) 2 % (1-7); LYMPH#(MANUAL) 2.09 x10^3/uL (1-3.4); LYMPHS% (MANUAL) 12 % (22-44); METAMYELOCYTES# (MANUAL) 0.17 x10^3/uL (0-0); METAMYELOCYTES% (MANUAL) 1 % (0-1); MONOS% (MANUAL) 4 % (2-9); MYELOCYTES# (MANUAL) 0.17 x10^3/uL (0-0); MYELOCYTES% (MANUAL) 1 % (0-0); SEG#(MANUAL) 13.92 x10^3/uL (1.8-6.8); SEGS% (MANUAL) 80 % (42-75)
--- NOTE | 2021-01-27 16:57 | NUR ---
Ulices ponce in [facility] - 01/27/21 at 1658 by [employer] digital strategist: pt from lobby to room 35
--- NOTE | 2021-01-27 17:00 | NUR ---
auto driver: pt from lobby to room 4
[2021-01-27] MEDS ORDERED: SODIUM CHLORIDE FLUSH 10ML SYR IVF ONE (17:30)
[2021-01-27] MEDS ORDERED: SODIUM CHLORIDE 0.9% 1,000ML IVBOLUS ONE (17:30)
[2021-01-27] MEDS ORDERED: ONDANSETRON 2MG/ML, 2ML IVPush ONE (17:30)
[2021-01-27] MEDS ORDERED: SODIUM CHLORIDE 0.9% 1,000 ML IV ONE ×2 (17:30→18:00)
[2021-01-27] MEDS ORDERED: MORPHINE SULFATE 4 MG/ML, 1ML IVPush PRN (17:30)
[2021-01-27] MEDS ORDERED: ONDANSETRON 2MG/ML, 2ML ONE (17:48)
[2021-01-27] MEDS ORDERED: MORPHINE SULFATE 4 MG/ML, 1ML ONE (17:48)
--- NOTE | 2021-01-27 17:48 | NUR ---
REPORT RECEIVED FROM FREDDY TEAGUE.
--- NOTE | 2021-01-27 17:54 | NUR ---
BREAK RN: PT C/O WEAKNESS WITH ALL OVER BODY PAIN X4 DAYS. PT ALSO REPORTS SOME NAUSEA. VS STABLE. CALL LIGHT IN PLACE. REPORT GIVEN TO DESTINEE MELVIN RN
[2021-01-27] MEDS ORDERED: SODIUM CHLORIDE FLUSH 10ML SYR IVF PRN (18:00)
--- NOTE | 2021-01-27 18:26 | NUR ---
report given to gio torrez. all questions answered.
--- NOTE | 2021-01-27 18:32 | NUR ---
WELDING FOREMAN PLACED AT THIS TIME DUE TO LOW NA AND HIGH K.
[2021-01-27] MEDS ORDERED: ONDANSETRON 2MG/ML, 2ML IVPush PRN (19:00)
[2021-01-27] MEDS ORDERED: hydrALAzine 20 MG/ML, 1ML IVPush PRN (19:00)
[2021-01-27] MEDS ORDERED: DOCUSATE 100 MG CAPSULE PO PRN (19:00)
[2021-01-27 19:27] VITALS: BP 138/75
[2021-01-27] MEDS: SODIUM CHLORIDE 0.9% 1,000 ML IV SCH (19:40)
[2021-01-27] MEDS: HEPARIN 5,000 UNITS/ML, 1ML SQ SCH (19:49)
[2021-01-27] MEDS: ACETAMINOPHEN 325 MG TABLET PO PRN (19:58)
[2021-01-27 20:02] LABS: ANION GAP 11 mmol/L (5-15); CALCIUM 8.7 mg/dL (8.5-10.1); CHLORIDE 99 mmol/L (98-107); CREATININE 2.67 mg/dL (0.7-1.3)
[2021-01-27] MEDS ORDERED: MELATONIN 5 MG TABLET PO PRN (21:00)
[2021-01-27 22:52] LABS: MICROSCOPIC NOT IND
[2021-01-27] MEDS: MORPHINE SULFATE 4 MG/ML, 1ML IVPush PRN (22:52)
[2021-01-27 22:53] VITALS: BP 120/78
[2021-01-27 22:57] LABS: POTASSIUM,URINE RANDOM 32 mmol/L
[2021-01-27 23:13] LABS: CHLORIDE,URINE RANDOM < 10 mmol/L; SODIUM,URINE RANDOM < 5 mmol/L
[2021-01-28 01:04] VITALS: BP 120/73
[2021-01-28 02:12] LABS: MEAN CORPUSCULAR HEMOGLOBIN 30.9 pg (27.5-34.5); MEAN PLATELET VOLUME 6.9 fL (7.4-10.4); PLATELET COUNT 437 x10^3/uL (130-400); RED CELL DISTRIBUTION WIDTH 14.7 % (9.4-14.8)
[2021-01-28 02:26] LABS: ANION GAP 9 mmol/L (5-15); CALCIUM 8.5 mg/dL (8.5-10.1); CHLORIDE 101 mmol/L (98-107); CREATININE 2.38 mg/dL (0.7-1.3)
[2021-01-28 02:58] LABS: MD YES
[2021-01-28 03:03] LABS: BAND#(MANUAL) 0.49 x10^3/uL; BANDS%(MANUAL) 4 % (0-7); EOS#(MANUAL) 0.25 x10^3/uL (0.0-0.4); EOS% (MANUAL) 2 % (1-7); LYMPH#(MANUAL) 1.23 x10^3/uL (1-3.4); LYMPHS% (MANUAL) 10 % (22-44); METAMYELOCYTES# (MANUAL) 0.25 x10^3/uL (0-0); METAMYELOCYTES% (MANUAL) 2 % (0-1); MONOS#(MANUAL) 0.86 x10^3/uL (0.3-2.7); MONOS% (MANUAL) 7 % (2-9); MYELOCYTES# (MANUAL) 0.12 x10^3/uL (0-0); MYELOCYTES% (MANUAL) 1 % (0-0); SEGS% (MANUAL) 74 % (42-75)
[2021-01-28 03:04] LABS: <PLATELET ESTIMATE> INCREASED; <RBC MORPHOLOGY> NORMAL; SMALL PLATELETS 1+
[2021-01-28] MEDS: HEPARIN 5,000 UNITS/ML, 1ML SQ SCH ×3 (04:03→18:34)
[2021-01-28] MEDS: ACETAMINOPHEN 325 MG TABLET PO PRN (04:06)
[2021-01-28] MEDS: SODIUM CHLORIDE 0.9% 1,000 ML IV SCH ×2 (06:11→20:05)
[2021-01-28 07:21] VITALS: BP 114/72
[2021-01-28 08:11] LABS: ANION GAP 8 mmol/L (5-15); CALCIUM 8.6 mg/dL (8.5-10.1); CHLORIDE 103 mmol/L (98-107)
[2021-01-28] MEDS ORDERED: SODIUM CHLORIDE 0.9% 1,000ML IV ONE (08:30)
[2021-01-28] MEDS: MAGNESIUM SULFATE PMX 2GM/50ML 50 ML IV SCH ×2 (09:30→20:05)
[2021-01-28] MEDS: MULTIVITS,STRESS FORMULA 1 TABLET PO SCH (09:30)
[2021-01-28] MEDS: CHOLECALCIFEROL 5,000u TAB PO SCH (09:30)
[2021-01-28] MEDS: ZINC SULFATE 220 MG CAPSULE PO SCH (09:30)
[2021-01-28 13:54] VITALS: BP 121/76
[2021-01-28] MEDS: MORPHINE SULFATE 4 MG/ML, 1ML IVPush PRN ×2 (14:53→19:49)
[2021-01-28 14:56] LABS: CHLORIDE 105 mmol/L (98-107)
[2021-01-28 15:01] LABS: ANION GAP 6 mmol/L (5-15); CALCIUM 8.4 mg/dL (8.5-10.1); CREATININE 1.58 mg/dL (0.7-1.3)
[2021-01-28] MEDS: ASCORBIC ACID 500 MG TABLET PO SCH (18:34)
[2021-01-28 19:40] VITALS: BP 123/71
[2021-01-29] MEDS: HEPARIN 5,000 UNITS/ML, 1ML SQ SCH (00:01)
[2021-01-29] MEDS: MORPHINE SULFATE 4 MG/ML, 1ML IVPush PRN (00:03)
[2021-01-29 02:30] VITALS: BP 120/69
[2021-01-29] MEDS: ACETAMINOPHEN 325 MG TABLET PO PRN (06:00)
[2021-01-29 07:26] VITALS: BP 137/67
[2021-01-29 08:04] LABS: MEAN CORPUSCULAR HEMOGLOBIN 31.2 pg (27.5-34.5); MEAN CORPUSCULAR HGB CONC 33.9 g/dL (33.2-36.2); MEAN PLATELET VOLUME 6.8 fL (7.4-10.4); PLATELET COUNT 406 x10^3/uL (130-400); RED BLOOD COUNT 3.94 x10^6/uL (4.38-5.82); RED CELL DISTRIBUTION WIDTH 14.8 % (9.4-14.8)
[2021-01-29 08:13] LABS: ALBUMIN 3.1 g/dL (3.4-5.0); ANION GAP 7 mmol/L (5-15); CALCIUM 8.3 mg/dL (8.5-10.1); CHLORIDE 109 mmol/L (98-107); CREATININE 1.17 mg/dL (0.7-1.3)
[2021-01-29] MEDS: ASCORBIC ACID 500 MG TABLET PO SCH (08:32)
[2021-01-29] MEDS: SODIUM CHLORIDE 0.9% 1,000 ML IV SCH (08:32)
[2021-01-29] MEDS: CHOLECALCIFEROL 5,000u TAB PO SCH (08:32)
[2021-01-29] MEDS: MULTIVITS,STRESS FORMULA 1 TABLET PO SCH (08:32)
[2021-01-29] MEDS: ZINC SULFATE 220 MG CAPSULE PO SCH (08:32)
[2021-01-29 08:40] LABS: MD YES
[2021-01-29 08:42] LABS: <PLATELET ESTIMATE> INCREASED; <RBC MORPHOLOGY> NORMAL; BAND#(MANUAL) 0.08 x10^3/uL; BANDS%(MANUAL) 1 % (0-7); BASOS#(MANUAL) 0.08 x10^3/uL (0-0.1); BASOS% (MANUAL) 1 % (0-1); EOS#(MANUAL) 0.08 x10^3/uL (0.0-0.4); EOS% (MANUAL) 1 % (1-7); LYMPH#(MANUAL) 0.62 x10^3/uL (1-3.4); LYMPHS% (MANUAL) 8 % (22-44); METAMYELOCYTES# (MANUAL) 0.08 x10^3/uL (0-0); METAMYELOCYTES% (MANUAL) 1 % (0-1); MONOS#(MANUAL) 0.62 x10^3/uL (0.3-2.7); MONOS% (MANUAL) 8 % (2-9); SEG#(MANUAL) 6.24 x10^3/uL (1.8-6.8); SEGS% (MANUAL) 80 % (42-75)
[2021-01-29 08:43] LABS: <PLT MORPHOLOGY> NORMAL PLT MORPH
[2021-01-29] MEDS ORDERED: ESOM20SU PO (10:31)
[2021-01-29] MEDS ORDERED: ZINC220C8 PO (10:31)
[2021-01-29] MEDS ORDERED: ASCO500T9 PO (10:31)
[2021-01-29] MEDS ORDERED: NA P1TAB PO (10:31)
[2021-01-29] MEDS ORDERED: CHOL500045 PO (10:31)
[2021-01-29 12:22] VITALS: BP 135/66
== END 2021-01-29 12:54 | disposition home or self-care (01) | DRG 683 ==
LOC: ED 17:28 → EDIP 17:45 → 4EST 18:32
PROVIDERS: ADMIT Emergency Medicine; ATTEND Family Medicine
PROC: 0T9B70Z Drainage of Bladder with Drainage Device, Via Natural or Artificial Opening (ICD-10-PCS; principal; 2021-01-27)
DX: N17.9 Acute kidney failure, unspecified (principal); E87.2 Acidosis; E87.1 Hypo-osmolality and hyponatremia; K50.90 Crohn's disease, unspecified, without complications; Z88.8 Allergy status to other drugs, medicaments and biological substances; E55.9 Vitamin D deficiency, unspecified; E87.5 Hyperkalemia; I10 Essential (primary) hypertension; N40.0 Benign prostatic hyperplasia without lower urinary tract symptoms; Z87.440 Personal history of urinary (tract) infections; Z87.891 Personal history of nicotine dependence; Z93.3 Colostomy status; F32.9 Major depressive disorder, single episode, unspecified; K21.9 Gastro-esophageal reflux disease without esophagitis; Z90.49 Acquired absence of other specified parts of digestive tract; Z93.2 Ileostomy status; D72.829 Elevated white blood cell count, unspecified
CPT/HCPCS: 36415; 74176; 80048; 80053; 80069; 81003; 82306; 82436; 82533; 83690; 83735; 83930; 83935; 83970; 84100; 84133; 84300; 84443; 84484; 85025; 93005; 96374; G0378; J1644; J2405; J2270; J3475; J7030

== ENCOUNTER → 2021-02-27 | Outpatient (CLI) | payer MEDICARE, MEDICAID ==
[~2021-02-27] MED LIST changes: +ASCO500T9 PO; +CHOL500045 PO; -HYDR-1067 PO; +HYDR-2214 PO; +LOPE2CAP PO; +NA P1TAB PO; +ZINC220C8 PO
== END | disposition home or self-care (01) ==
LOC: RAD 07:50
PROVIDERS: ATTEND Internal Medicine Gastroenterology
DX: K50.00 Crohn's disease of small intestine without complications (principal); K94.19 Other complications of enterostomy; E53.8 Deficiency of other specified B group vitamins; I10 Essential (primary) hypertension
CPT/HCPCS: 74250

== ENCOUNTER → 2021-05-30 | Outpatient (CLI) | payer MEDICARE, MEDICAID | END | disposition home or self-care (01) | LOC: CFH 09:39 | PROVIDERS: ATTEND Internal Medicine Gastroenterology | DX: M85.88 Other specified disorders of bone density and structure, other site (principal); K50.00 Crohn's disease of small intestine without complications; K94.19 Other complications of enterostomy; B37.81 Candidal esophagitis; E53.8 Deficiency of other specified B group vitamins | CPT/HCPCS: 77080 ==